=== PATIENT | male | born 1960 | race American Indian/Alaskan Native ===

== ENCOUNTER 2017-07-16 17:51 | Inpatient (IN) | payer BC ==
--- NOTE | 2017-07-16 18:13 | ED PDOC ---
Arrival/HPI - General Chief Complaint: Weakness/Neurological Deficit Time Seen by Provider: 07/16/17 18:06 Historian: Patient, EMS - History of Present Illness Narrative History of Present Illness (Text): 07/16/17 18:09 pt p/w + speech changes/mild right sided weakness ~ 30-45min prior to ED arrival ; as per EMS, pt was noted by passenger on the bus that he was in (on the way home) that pt had trouble with speech and that he did not look well; pt states he noted speech changes 2 days ago and that his symptoms were intermittent; pt felt like he had a hard time getting his words out and felt that the new medications he is on is causing it (pt states its Viagra); pt states + mild headache, no new vision changes, no fever/chills/sweats, no cp/sob/palpitations , no abd pain, no n/v, no numbness/tingling, no fall/trauma/sick contact, no travel; pt denied rashes pt denied bleeding pt is here for further eval pt's without other complaints pt did not take his daily ASA today PCP: Dr Ibarra ([facility]) pt is right hand dominate 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 pt with hx of aneursym Time/Duration: Prior to Arrival Symptom Onset: Sudden Symptom Course: Improving Activities at Onset: Rest Context: Other (while sitting on the bus, going home) Past Medical History - Provider Review Nursing Documentation Reviewed: Yes - Travel History Have you recently traveled outside [place] w/in the past 3 mons?: No - Past History Past History: No Previous - Infectious Disease Hx of Infectious Diseases: None - Tetanus Immunization Tetanus Immunization: Unknown - Cardiac Hx Hypertension: Yes Hx Pacemaker: No - Pulmonary Hx Respiratory Disorders: No - Neurological HX Cerebrovascular Accident: Yes (R sided weakness) Hx Paralysis: No - Hematological/Oncological Hx Blood Transfusions: No Hx Blood Transfusion Reaction: No - Musculoskeletal/Rheumatological Hx Musculoskeletal Disorders: No - Psychiatric Hx Psychophysiologic Disorder: No Hx Anxiety: No Hx Bipolar Disorder: No Hx Depression: No Hx Emotional Abuse: No Hx Hallucinations: No Hx Panic Disorder: No Hx Post Traumatic Stress Disorder: No Hx Psychosis: No Hx Physical Abuse: No Hx Schizophrenia: No Hx Sexual Abuse: No Hx Substance Use: No - Surgical History Hx Cardiac Catheterization: Yes (2012) - Anesthesia Hx Anesthesia: Yes Hx Anesthesia Reactions: No Hx Malignant Hyperthermia: No - Suicidal Assessment Feels Threatened In Home Enviroment: No Family/Social History - Physician Review Nursing Documentation Reviewed: Yes Family/Social History: No Known Family HX Smoking Status: Never Smoked Hx Alcohol Use: No Hx Substance Use: No Hx Substance Use Treatment: No Allergies/Home Meds Allergies/Adverse Reactions: Allergies No Known Allergies Allergy (Verified 11/05/12 10:04) Home Medications: Home Meds Medication Instructions Recorded Confirmed Atorvastatin [Lipitor] 1 tab PO DAILY 07/16/17 07/16/17 Ergocalciferol [Drisdol 50,000 1 cap PO Q7D 07/16/17 07/16/17 Intl Units Cap] Nebivolol [Bystolic] 1 tab PO DAILY 07/16/17 07/16/17 Sildenafil Citrate [Viagra] 1 tab PO PRN PRN 07/16/17 07/16/17 Valsartan/Hydrochlorothiazide 1 tab PO DAILY 07/16/17 07/16/17 [Valsartan-Hctz 80-12.5 mg Tab] amLODIPine [Norvasc] 1 tab PO DAILY 07/16/17 07/16/17 Review of Systems - Review of Systems Constitutional: Normal Eyes: Normal ENT: Normal Respiratory: Normal Cardiovascular: Normal Gastrointestinal: Normal Genitourinary Male: Normal Musculoskeletal: Normal Neurological: Headache, Focal Weakness (right arm/leg), Speech Changes ( inability to get words out) Endocrine: Normal Hemo/Lymphatic: Normal Psychiatric: Normal Physical Exam Vital Signs Reviewed: Yes Vital Signs Temp Pulse Resp BP Pulse Ox 07/16/17 19:48 70 18 182/101 H 98 07/16/17 19:30 70 18 196/91 H 97 07/16/17 18:41 98.3 F 72 20 184/97 H 98 07/16/17 18:03 81 18 187/90 H 100 Temperature: Afebrile Blood Pressure: Hypertensive Pulse: Regular Respiratory Rate: Normal Appearance: Positive for: Well-Appearing, Non-Toxic, Other (alert/awake, mildly uncomfortable, sitting on bed, GCS = 15, oriented x 2 (not to date/time), cooperative, NAD) Pain Distress: None Mental Status: Positive for: other (alert/awake, GCS = 15, oriented x 2 (not to date/time)) Finger Stick Blood Glucose: 91 - Systems Exam Head: Present: Atraumatic, Normocephalic Pupils: Present: PERRL, Other (no nystagmus, no photophobia, sclera anicteric, visual field intact b/l) Extroacular Muscles: Present: EOMI Conjunctiva: Present: Normal Ears: Present: Normal Mouth: Present: Moist Mucous Membranes, Normal Teeth, Other (uvula/tongue are midline, no exudate/lesions, no drooling/stridor, intact dentitions) Pharnyx: Present: Normal Nose (External): Present: Atraumatic Nose (Internal): Present: Normal Inspection Neck: Present: Normal Range of Motion, Trachea Midline, Other (intact ROM, no step off, no nuchal rigidity). No: Meningeal Signs, MIDLINE TENDERNESS, Paraspinal Tenderness Respiratory/Chest: Present: Clear to Auscultation, Good Air Exchange, Other ( CTA b/l, no w/r/r, no accessory muscle use noted, no tachypenia). No: Respiratory Distress, Accessory Muscle Use, Wheezes Cardiovascular: Present: Regular Rate and Rhythm, Normal S1, S2. No: Murmurs Abdomen: Present: Normal Bowel Sounds, Other (well nourished male, no focal tenderness, no resendez's sign, no mcburney's point tenderness, no masses/rebound/ guarding/rigidity) Back: Present: Normal Inspection. No: CVA Tenderness, Midline Tenderness, Paraspinal Tenderness, Pain with Leg Raise Upper Extremity: Present: Normal Inspection, Normal ROM, NORMAL PULSES, Neurovascularly Intact, Other (strength 4+/5 right arm, WNL left arm; otherwise WNL, no gross deformities, reflex +2/2). No: Deformity Lower Extremity: Present: Normal Inspection, NORMAL PULSES, Normal ROM, Neurovascularly Intact, Other (strength 4+/5 right leg, WNL left leg; otherwise WNL, no gross deformities, reflex +2/2). No: Deformity Neurological: Present: GCS=15, CN II-XII Intact Skin: Present: Warm, Normal Color, Other (cap refill < 1sec, no ulcerations, no petechiae, no rashes) Psychiatric: Present: Alert, Normal Insight, Normal Concentration Medical Decision Making ED Course and Treatment: 07/16/17 18:07 Impression: speech changes/right sided weakness i have consider all the differential diagnosis regarding pt's chief medical complaints/clinical findings, including but are not limited to: ? TIA vs CVA A/P: speech changes/right sided weakness - code stroke - labs - iv - xray - ct - supportive care - observe/reevaluation CODE STROKE was activated 6:07p - spoke to Dr Eller, water reclamation systems operator neurologists, made aware, given pt's indeterminant time of TIA/CVA symptoms (possibly starting on thursday), and with slightly improved symptoms, PT IS NOT A CANDIDATE for TPA, Dr Eller will continue to monitor 07/16/[address] Eller, after negative CT, made aware, would like full dose ASA provided to the patient, permissive hypertension, unless BP > 220/110, and to admit pt for further eval paging water reclamation systems operator PCP, Dr Robledo pt is currently comfortable pt is not in any distress Dr Robledo has not reply/return call, continue to page 07/16/17 21:04 Dr Robledo contacted, made aware, agrees with admission; agrees with neurology ( Rafita) consultation in the morning pt is made aware of his medical results agrees with admission pt's currently at baseline, NO slurr speech, continued right sided (arm/leg) weakness (chronic) Re-evaluation Time: 19:00 Reassessment Condition: Improving,but remains with symptoms - Critical Care Critical Care Minutes: 45 minutes Critical Care Time: Excluding Proc Time Narrative Critical Care (Text): 07/16/17 19:07 critical care time: 45min, excluding procedure time, excluding time teaching residents/students/mid-level providers; including initial eval/diagnosis, diagnostic interpretation, re-eval, consultations, final disposition - Lab Interpretations Lab Results: 07/16/17 18:14 07/16/17 18:14 Lab Results 07/16/17 19:17: Urine Color Straw, Urine Appearance Clear, Urine pH 7.5, Ur Specific Cucumber 1.010, Urine Protein Negative, Urine Glucose (UA) Negative, Urine Ketones Negative, Urine Blood Negative, Urine Nitrate Negative, Urine Bilirubin Negative, Urine Urobilinogen 0.2, Ur Leukocyte Esterase Negative 07/16/17 18:14: Sodium 146, Potassium 4.1, Chloride 106, Carbon Dioxide 28, Anion Gap 16, BUN 17, Creatinine 1.1, Est GFR ( Amer) > 60, Est GFR (Non- Af Amer) > 60, Random Glucose 96, Calcium 9.3, Total Bilirubin 0.4, AST 24, ALT 31, Alkaline Phosphatase 52, Troponin I < 0.01, Total Protein 8.1, Albumin 4.5, Globulin 3.6, Albumin/Globulin Ratio 1.2, Triglycerides 255 H, Cholesterol 209 H , LDL Cholesterol Direct 113, HDL Cholesterol 33 07/16/17 18:14: PT 11.7, INR 1.03, APTT 30.9 07/16/17 18:14: WBC 4.7, RBC 4.45, Hgb 12.5 L, Hct 39.2 L, MCV 88.1, MCH 28.1, MCHC 31.9, RDW 15.3 H, Plt Count 209, MPV 10.0, Gran % 36.6 L, Lymph % (Auto) 53.7 H, [place] % (Auto) 7.6 H, Eos % (Auto) 1.9, Baso % (Auto) 0.2, Gran # 1.73, Lymph # (Auto) 2.5, [place] # (Auto) 0.4, Eos # (Auto) 0.1, Baso # (Auto) 0.01 07/16/17 18:06: Blood Type Pending, Antibody Screen Pending, BBK History Checked Patient has bt 07/16/17 17:59: POC Glucose (mg/dL) 91 I have reviewed the lab results: Yes Interpretation: All labs normal - RAD Interpretation Narrative RAD Interpretations (Text): Report Date : 07/16/2017 18:30:50 PROCEDURE: CT HEAD WITHOUT CONTRAST. 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 This is unchanged. No acute findings 07/16/17 21:05 Chest X-ray read and interpreted by me, which shows no acute disease, right shunt catheter noted. PROCEDURE: CT Angiography of the Brain. HISTORY: speech changes, slightly worse R sided weaknes; COMPARISON: None available. TECHNIQUE: CT angiography of the intracranial arteries was performed. Coronal and sagittal maximum intensity projection reformated images were generated. This CT exam was performed using one or more of the following dose reduction techniques: Automated exposure control, adjustment of the mA and/or kV according to patient size, and/or use of iterative reconstruction technique. FINDINGS: INTERNAL CEREBRAL ARTERIES: Unremarkable. The skull base, petrous, cavernous and supraclinoid segments are bilaterally widely patent. ANTERIOR CEREBRAL ARTERIES: Unremarkable. A1 and A2 segments are widely patent. Smaller distal branches unremarkable, as visualized. MIDDLE CEREBRAL ARTERIES: Unremarkable. M1 and M2 segments are widely patent. Perisylvian branches grossly symmetric. POSTERIOR CIRCULATION: Basilar Artery: Unremarkable. Distal Vertebral Arteries: Unremarkable. Posterior Cerebral Arteries: Unremarkable. Posterior Inferior Cerebellar Arteries: Unremarkable. ANEURYSM/ VASCULAR MALFORMATIONS: None. OTHER FINDINGS: There is a right-sided ventricular shunt. Chronic encephalomalacia and atrophy can be seen in the region of the left thalamus and basal ganglia IMPRESSION: Unremarkable CT Angiography of the Brain. CT Angiography of the neck with contrast HISTORY: speech changes, slightly worse R sided weaknes; COMPARISON: None available. TECHNIQUE: Contiguous axial images of the neck were obtained from the level of the skull- base to the superior mediastinum in the arteriographic phase of enhancement. Coronal and sagittal reformats or also generated. IV contrast dose: 95 cc of Omni 350 Radiation Dose - DLP: 663 mGy-cm This CT exam was performed using one or more of the following dose reduction techniques: Automated exposure control, adjustment of the mA and/or kV according to patient size, and/or use of iterative reconstruction technique. FINDINGS: RIGHT CAROTID ARTERIES: Common Carotid Artery: Normal. Carotid Bifurcation: Normal. Internal Carotid Artery:Normal. External Carotid Artery (proximal branches): Normal. LEFT CAROTID ARTERIES: Common Carotid Artery: Normal. Carotid Bifurcation: Normal. Internal Carotid Artery:The left internal carotid is small in caliber throughout its length. This is probably a normal variation. There is no focal stenosis . External Carotid Artery (proximal branches): Normal. VERTEBRAL ARTERIES: Right Vertebral Artery: Normal. Left Vertebral Artery: Normal. OTHER FINDINGS: None. IMPRESSION: The left internal carotid is small in caliber throughout its length. This is probably a normal variation. There is no focal stenosis Radiology Orders: 07/16/17 18:07 CTA HEAD/NECK CODE STROKE [CT] Stat HEAD W/O (CODE STROKE) [CT] Stat 07/16/17 18:48 CHEST PORTABLE [RAD] Stat Silver Recovery Operator: Radiologist - EKG Interpretation EKG Interpretation (Text): 07/16/17 18:35 NSR at 75 bpm, normal axis, no ectopy, inverted T in leads II, L, III, F, V4-6, no st changes, voltage criteria LVH; ABNL EKG; unchanged compare with old ekg 2014 Interpreted by ED Physician: Yes Type: 12 lead EKG Comparison: Similar to previous EKG - Medication Orders Current Medication Orders: Sodium Chloride (Sodium Chloride 0.9%) 1,000 mls @ 100 mls/hr IV .Q10H [facility] Last Admin: 07/16/17 19:23 Dose: 100 mls/hr Discontinued Medications Aspirin (Aspirin) 325 mg PO STAT STA Stop: 07/16/17 18:58 Last Admin: 07/16/17 19:23 Dose: 325 mg NIHSS Stroke Scale 3 - Date/Time Evaluation Performed Date Performed: 07/16/17 Time Performed: 18:10 When Was NIHSS Performed: Code Stroke - How Severe is the Stroke Level of Consciousness: 0=Alert LOC to Questions: 0=Both comments correct LOC to commands: 0=Obeys both correctly Best Gaze: 0=Normal Visual: 0=No visual loss Facial: 0=Normal Motor Arm - Left: 0=No drift Motor Arm - Right: 1=Drift noted before 10 sec Motor Leg - Left: 0=No drift Motor Leg - Right: 2=Falls before 5 sec Limb Ataxia: 0=Absent Sensory: 0=Normal Best Language: 1=Mild to moderate aphasia Dysarthia: 0=Normal articulation Extinction & Inattention (Neglect): 0=Normal, no object Score: 4 Disposition/Present on Arrival - Present on Arrival Any Indicators Present on Arrival: No History of DVT/PE: No History of Uncontrolled Diabetes: No Urinary Catheter: No History of Decub. Ulcer: No History Surgical Site Infection Following: None - Disposition Have Diagnosis and Disposition been Completed?: Yes Diagnosis: Speech complaints, TIA (transient ischemic attack), Elevated blood pressure reading, Brain mass Disposition: HOSPITALIZED Disposition Time: 21:07 Patient Plan: Admission, Telemetry Patient Problems: Current Active Problems Problem Status Onset Elevated blood pressure reading Acute Speech complaints Acute TIA (transient ischemic attack) Acute Condition: STABLE Discharge Instructions (ExitCare): Hypotension (ED), Hypertension (ED) Print Language: BELARUSIAN Referrals: Jl Cerrato MD [Staff Provider] - Follow up with primary Forms: [facility])
[2017-07-16] MEDS ORDERED: Iohexol 350 MG/100 ML VIAL ONE (18:16)
[2017-07-16 18:18] LABS: BASO # 0.01 K/mm3 (0.0-2.0); BASO % 0.2 % (0.0-3.0); EOS # 0.1 (0.0-0.7); EOS % 1.9 % (1.5-5.0); GRAN # 1.73 (1.4-6.5); GRAN % 36.6 % (50.0-68.0); HEMOGLOBIN 12.5 g/dL (14.0-18.0); LYMPH # 2.5 (1.2-3.4); LYMPH % 53.7 % (22.0-35.0); MEAN CELL VOLUME 88.1 fl (80.0-105.0); MEAN CORPUSCULAR HEMOGLOBIN 28.1 pg (25.0-35.0); MEAN CORPUSCULAR HGB CONC 31.9 g/dl (31.0-37.0); MONO # 0.4 (0.1-0.6); MONO % 7.6 % (1.0-6.0); RBC 4.45 10^6/uL (3.5-6.1); RED CELL DISTRIBUTION WIDTH 15.3 % (11.5-14.5); WHITE BLOOD COUNT 4.7 10^3/ul (4.5-11.0)
[2017-07-16 18:29] LABS: INR 1.03 (0.93-1.08); PARTIAL THROMBOPLASTIN TIME 30.9 Seconds (25.1-36.5); PROTHROMBIN TIME 11.7 SECONDS (9.4-12.5)
[2017-07-16 18:31] LABS: ALB/GLOB RATIO 1.2 (1.1-1.8); ALBUMIN 4.5 g/dL (3.0-4.8); ALT/SGPT 31 U/L (7-56); AST/SGOT 24 U/L (17-59); BLOOD UREA NITROGEN 17 mg/dL (7-21); CALCIUM 9.3 mg/dL (8.4-10.5); GFR AFRICAN-AMERICAN > 60; GFR NON-AFRICAN AMERICAN > 60; HDL CHOLESTEROL 33 mg/dL (29-60)
--- NOTE | 2017-07-16 18:32 | CT ---
PROCEDURE: CT HEAD WITHOUT CONTRAST. HISTORY: Code Stroke COMPARISON: 05/14/2014 CT TECHNIQUE: Axial computed tomography images were obtained through the head/brain without intravenous contrast. Radiation dose: Total exam DLP = 986 mGy-cm. This CT exam was performed using one or more of the following dose reduction techniques: Automated exposure control, adjustment of the mA and/or kV according to patient size, and/or use of iterative reconstruction technique. FINDINGS: HEMORRHAGE: No intracranial hemorrhage. BRAIN: There is a 2.8 cm mass in the left thalamus. This is unchanged. There is a right ventricular catheter. Chronic microvascular changes VENTRICLES: Unremarkable. No hydrocephalus. CALVARIUM: Unremarkable. PARANASAL SINUSES: Unremarkable as visualized. No significant inflammatory changes. MASTOID AIR CELLS: Unremarkable as visualized. No inflammatory changes. OTHER FINDINGS: None. 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 This is unchanged. No acute findings
[2017-07-16 18:41] LABS: LDL CHOLESTEROL 113 mg/dL (0-129); TROPONIN I < 0.01 ng/mL
--- NOTE | 2017-07-16 19:05 | CT ---
PROCEDURE: CT Angiography of the Brain. HISTORY: speech changes, slightly worse R sided weaknes; COMPARISON: None available. TECHNIQUE: CT angiography of the intracranial arteries was performed. Coronal and sagittal maximum intensity projection reformated images were generated. This CT exam was performed using one or more of the following dose reduction techniques: Automated exposure control, adjustment of the mA and/or kV according to patient size, and/or use of iterative reconstruction technique. FINDINGS: INTERNAL CEREBRAL ARTERIES: Unremarkable. The skull base, petrous, cavernous and supraclinoid segments are bilaterally widely patent. ANTERIOR CEREBRAL ARTERIES: Unremarkable. A1 and A2 segments are widely patent. Smaller distal branches unremarkable, as visualized. MIDDLE CEREBRAL ARTERIES: Unremarkable. M1 and M2 segments are widely patent. Perisylvian branches grossly symmetric. POSTERIOR CIRCULATION: Basilar Artery: Unremarkable. Distal Vertebral Arteries: Unremarkable. Posterior Cerebral Arteries: Unremarkable. Posterior Inferior Cerebellar Arteries: Unremarkable. ANEURYSM/ VASCULAR MALFORMATIONS: None. OTHER FINDINGS: There is a right-sided ventricular shunt. Chronic encephalomalacia and atrophy can be seen in the region of the left thalamus and basal ganglia IMPRESSION: Unremarkable CT Angiography of the Brain. CT Angiography of the neck with contrast HISTORY: speech changes, slightly worse R sided weaknes; COMPARISON: None available. TECHNIQUE: Contiguous axial images of the neck were obtained from the level of the skull-base to the superior mediastinum in the arteriographic phase of enhancement. Coronal and sagittal reformats or also generated. IV contrast dose: 95 cc of Omni 350 Radiation Dose - DLP: 663 mGy-cm This CT exam was performed using one or more of the following dose reduction techniques: Automated exposure control, adjustment of the mA and/or kV according to patient size, and/or use of iterative reconstruction technique. FINDINGS: RIGHT CAROTID ARTERIES: Common Carotid Artery: Normal. Carotid Bifurcation: Normal. Internal Carotid Artery:Normal. External Carotid Artery (proximal branches): Normal. LEFT CAROTID ARTERIES: Common Carotid Artery: Normal. Carotid Bifurcation: Normal. Internal Carotid Artery:The left internal carotid is small in caliber throughout its length. This is probably a normal variation. There is no focal stenosis . External Carotid Artery (proximal branches): Normal. VERTEBRAL ARTERIES: Right Vertebral Artery: Normal. Left Vertebral Artery: Normal. OTHER FINDINGS: None. IMPRESSION: The left internal carotid is small in caliber throughout its length. This is probably a normal variation. There is no focal stenosis
[2017-07-16] MEDS: Sodium Chloride 0.9% 1,000 ML IV SCH (19:23)
[2017-07-16 19:29] LABS: PH,URINE 7.5 (4.7-8.0); URINE APPEARANCE CLEAR (CLEAR); URINE BILIRUBIN NEGATIVE (NEGATIVE); URINE BLOOD NEGATIVE (NEGATIVE); URINE COLOR STRAW (YELLOW); URINE GLUCOSE (UA) NEGATIVE (NEGATIVE); URINE LEUKOCYTE ESTERASE NEGATIVE Leu/uL (NEGATIVE); URINE PROTEIN NEGATIVE mg/dL (<30 mg/dL); URINE UROBILINOGEN 0.2 E.U./dL (<1 E.U./dL)
[2017-07-16] MEDS ORDERED: Ergocalciferol 50,000 Intl Units Cap PO SCH (23:30)
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
--- NOTE | 2017-07-17 08:51 | RAD ---
HISTORY: Code Stroke COMPARISON: 05/13/2014 FINDINGS: LUNGS: No active pulmonary disease. PLEURA: No significant pleural effusion identified, no pneumothorax apparent. CARDIOVASCULAR: Mild cardiomegaly. Mild vascular congestion OSSEOUS STRUCTURES: No significant abnormalities. VISUALIZED UPPER ABDOMEN: Normal. OTHER FINDINGS: There is a [employer] shunt catheter IMPRESSION: Mild vascular congestion
--- NOTE | 2017-07-17 10:11 | CARD ---
APPROVED REPORT EKG Measurement Heart [id number] <Conclusion> Normal sinus rhythm Voltage criteria for left ventricular hypertrophy ST & T wave abnormality, consider inferolateral ischemia Prolonged QT No change
[2017-07-17] MEDS: NEBIVOLOL PO SCH (10:22)
[2017-07-17] MEDS: Sodium Chloride 0.9% 1,000 ML IV SCH ×3 (14:15→22:38)
--- NOTE | 2017-07-17 18:02 | MRI ---
PROCEDURE: MRI of the brain dated 07/17/2017 HISTORY: TIA versus CVA COMPARISON: Comparison made with prior CT scan brain and CTA of the neck and brain both dated 07/16/2017 TECHNIQUE: Multiplanar, multisequence MR images of the brain were obtained without intravenous contrast enhancement. . FINDINGS: HEMORRHAGE: The current study demonstrates relatively large irregular somewhat elliptical shaped lesion which appears to be centered in the left basal ganglia and extends inferiorly into the left temporal lobe and superiorly into left posterior bernard radiata. This lesion exhibits irregular - serpiginous areas of mixed signal with the darker foci felt to represent hemosiderin deposits. Findings most likely represent a large AVM which has undergone embolization and is thrombosed . Clinical correlation with surgical history is recommended. Formal -traditional four-vessel angiogram could be performed to confirm complete thrombosis. Additionally, there are hemosiderin deposits seen in the right thalamus and right anterior periatrial white matter of bordering the anterior margin of a traversing [employer] shunt tube . . . This lesion is surrounded by a rim of prolonged T2 signal likely representing gliosis. . Moderate diffuse/confluent prolonged T2 signal changes seen within periventricular and deep white matter both cerebral hemispheres extending peripherally into the deep and subcortical regions bilaterally. Multiple more discrete deep and subcortical white matter infarct changes are also felt to be present. There is a area of gliosis on and wallerian degeneration left cerebral peduncle. . There may also be a tiny chronic lacunar left cerebellum. No evidence of acute infarcts seen on diffusion imaging. . There are small bilateral subdural collections possibly representing chronic subdural hematomas. There is ex vacuo dilatation of the left lateral ventricle particularly the left atrium and occipital horn of. Ventricles are multi the breast by an in situ [employer] shunt tube which enters the right posterior temporoparietal region the and traverses the right atrium. Visualized major vascular flow voids at skull base patent. Orbits and contents unremarkable. IMPRESSION: Findings most consistent with a large left-sided residual AVM which presumably has undergone embolization and is thrombosed however traditional four-vessel cerebral angiogram recommended to confirm complete thrombosis. The epicenter of this lesion appears to be located in the left basal ganglia with extension inferiorly into the left temporal lobe and superiorly into the left mid and posterior bernard radiata. There appears to be extensive residual hemosiderin deposits scattered throughout the large aforementioned AVM. Large area of gliosis surrounds lesion. There is associated ex vacuo dilatation of the left lateral ventricle particularly the left atrium and occipital horn. . There is gliosis and wallerian degeneration of the left cerebral peduncle Small bilateral chronic appearing subdural hematomas. Extensive chronic white matter ischemic changes as above. No evidence of acute infarct. . In situ [employer] shunt tube . Ventricles remain well decompressed.
[2017-07-18] MEDS: Sodium Chloride 0.9% 1,000 ML IV SCH ×5 (01:48→19:49)
[2017-07-18 07:08] LABS: HDL CHOLESTEROL 29 mg/dL (29-60); IRON 52 ug/dL (45-180)
[2017-07-18 07:18] LABS: % IRON SATURATION 21 % (20-55); TOTAL IRON BINDING CAPACITY 251 ug/dL (261-462)
[2017-07-18 07:19] LABS: LDL CHOLESTEROL 126 mg/dL (0-129)
[2017-07-18] MEDS: NEBIVOLOL PO SCH (09:17)
[2017-07-18 12:50] LABS: FOLATE 13.9 ng/mL
[2017-07-19] MEDS: Sodium Chloride 0.9% 1,000 ML IV SCH ×4 (03:23→22:05)
--- NOTE | 2017-07-19 06:58 | CP.PCM.PN ---
Subjective - Date & Time of Evaluation Date of Evaluation: 07/19/17 Time of Evaluation: 06:56 - Subjective Subjective: Mr. Lara was seen and examined at the bedside. He is alert, oriented and denies any headache, dizziness, lightheadedness. He states that his slurred speech is minimally improving, but had slight slurred speech after his two episodes of ruptures of aneurysms. He further claims of his right side peripheral neglect, mild right facial droop are chronic. He is able to follow simple commands with right side remains weak. He also verbalize that he only use a cane during winter time and limps to ambulate. He is able to do some of his awn ADLs. MRI of the brain showed consistent with a large left-sided residual AVM which presumably has undergone embolization and is thrombosed however traditional four-vessel cerebral angiogram is recommended to confirm complete thrombosis. The epicenter of this lesion appears to be located in the left basal ganglia with extension inferiorly into the left temporal lobe and superiorly into the left mid and posterior bernard radiata. There appears to have extensive residual hemosiderin deposits scattered throughout the large aforementioned AVM.Large area of gliosis surrounds the lesion. There is associated ex vacuo dilation of the left lateral ventricle particularly the left atrium and occipital horn. There is gliosis and wallerian degeneration of the left cerebral peduncle. Small bilateral chronic appearing subdural hematomas. Extensive white matter ischemic changes. There is no evidence of acute infarct. In situ HYDRA[employer]IC TE[employer] shunt tube. Ventricles remain well decompressed. There was no untoward events overnight. Objective - Vital Signs/Intake and Output Vital Signs (last 24 hours): Temp Pulse Resp BP Pulse Ox 97.6 F 64 20 161/93 H 98 07/19/17 06:00 07/19/17 06:00 07/19/17 06:00 07/19/17 06:00 07/19/17 06:00 Intake and Output: 07/18/17 07/19/17 18:59 06:59 Intake Total 1200 Balance 1200 - Medications Medications: Current Medications Amlodipine Besylate (Norvasc) 10 mg PO DAILY [facility] Last Admin: 07/18/17 09:17 Dose: 10 mg Aspirin (Ecotrin) 81 mg PO DAILY [facility] Last Admin: 07/18/17 09:16 Dose: 81 mg Atorvastatin Calcium (Lipitor) 40 mg PO DIN [facility] Last Admin: 07/18/17 17:13 Dose: 40 mg Ergocalciferol (Drisdol 50,000 Intl Units Cap) 1 cap PO Q7D [facility] Last Admin: 07/17/17 00:00 Dose: 1 cap Famotidine (Pepcid) 40 mg PO HS [facility] Last Admin: 07/18/17 21:06 Dose: 40 mg Fenofibrate (Tricor) 145 mg PO DAILY [facility] Last Admin: 07/18/17 09:16 Dose: 145 mg Hydrochlorothiazide (Microzide) 12.5 mg PO DAILY [facility] Last Admin: 07/18/17 09:17 Dose: 12.5 mg Sodium Chloride (Sodium Chloride 0.9%) 1,000 mls @ 100 mls/hr IV .Q10H [facility] Last Admin: 07/19/17 05:34 Dose: Not Given Losartan Potassium (Cozaar) 50 mg PO DAILY [facility] Last Admin: 07/18/17 09:15 Dose: 50 mg Non-Formulary Medication (Nebivolol [Bystolic]) 1 tab PO DAILY [facility] Last Admin: 07/18/17 09:17 Dose: Not Given - Labs Labs: PT 11.7 SECONDS (9.4-12.5) 07/16/17 18:14 INR 1.03 (0.93-1.08) 07/16/17 18:14 APTT 30.9 Seconds (25.1-36.5) 07/16/17 18:14 - Constitutional Appears: No Acute Distress - Head Exam Head Exam: NORMAL INSPECTION - Eye Exam Pupil Exam: PERRL - Neurological Exam Neurological Exam: Alert, Awake, Oriented x3 Neuro motor strength exam: Left Upper Extremity: 4, Right Upper Extremity: 2/1, Left Lower Extremity: 4, Right Lower Extremity: 3 Additional comments: Alert, oriented, slurred speech is minimally improving, but had slight slurred speech after his two episodes of ruptures of aneurysms. He further claims of his right side peripheral neglect, mild right facial droop are chronic. He is able to follow simple commands with right side remains weak. He also verbalize that he only use a cane during winter time and limps to ambulate. He is able to do some of his awn ADLs. Sensation is intact. Assessment and Plan (1) Dysarthria Assessment & Plan: Case discussed with Dr. Eller, continue all current medical, physical, occupational, and speech therapies. Pending echocardiogram and pending EEG results. Recommend to follow up with his own neurosurgeon to further evaluate his AVM and possible cerebral angiogram. Status: Acute
[2017-07-19 07:22] LABS: HEMOGLOBIN 13.5 g/dL (14.0-18.0); MEAN CELL VOLUME 86.7 fl (80.0-105.0); MEAN CORPUSCULAR HEMOGLOBIN 27.6 pg (25.0-35.0); MEAN CORPUSCULAR HGB CONC 31.8 g/dl (31.0-37.0); MEAN PLATELET VOLUME 10.1 fl (7.0-11.0); RBC 4.89 10^6/uL (3.5-6.1); RED CELL DISTRIBUTION WIDTH 15.1 % (11.5-14.5); WHITE BLOOD COUNT 4.8 10^3/ul (4.5-11.0)
[2017-07-19 07:32] LABS: BLOOD UREA NITROGEN 15 mg/dL (7-21); CALCIUM 9.6 mg/dL (8.4-10.5); GFR AFRICAN-AMERICAN > 60; GFR NON-AFRICAN AMERICAN > 60
[2017-07-19] MEDS: NEBIVOLOL PO SCH (10:33)
--- NOTE | 2017-07-19 22:06 | PN ---
DATE: 07/19/2017 SUBJECTIVE: The patient is a 57-year-old male. The patient is seen and examined at the bedside, looking comfortable. No change in the status. Still a little bit dysarthric. Right side is a little bit weak. Brother was sitting on the bedside. Length of time discussion done. All questions were answered. PHYSICAL EXAMINATION: VITAL SIGNS: Temperature 98, pulse 74, blood pressure 140/97, respiratory rate 17. HEENT: Head: Normocephalic, atraumatic. Eyes: PERRLA. Extraocular muscles intact. Conjunctivae clear. Nose patent. Mucous membrane moist. NECK: Supple. No carotid bruit. No JVD or thyromegaly. CHEST: Bilaterally symmetrical. HEART: S1 and S2 positive. LUNGS: Clear to auscultation. ABDOMEN: Soft. Bowel sounds present. No organomegaly. EXTREMITIES: No edema. No cyanosis. NEUROLOGICAL: The patient is awake and alert. Following simple commands. LABORATORY DATA: White blood cells 4.8, hemoglobin 13.5, hematocrit 42.4, platelets 220. Sodium 145, potassium 4.1, BUN 15, creatinine 1, glucose 83. MEDICATIONS: Cozaar, vitamin D, Ecotrin, Lipitor, hydrochlorothiazide, Norvasc, famotidine, NS, TriCor. ASSESSMENT AND PLAN: Mr. Arcenio Lara, 57-year-old male with anemia. Seen by Dr. Alfred Eller, neurologist. Plan for MRI of the head reviewed by me. There are small bilateral chronic-appearing subdural hematomas, extensive chronic white matter ischemic changes. No evidence of acute infarction , ventricles remained well decompensated. This finding is most consistent with large left-sided arteriovenous malformation, which presumably had undergone embolization and is thrombosed , angiogram recommended to confirm the complete thrombus. Extensive residual hemosiderin deposit and scattered throughout the large aforementioned arteriovenous malformation. Large area of gliosis surrounding the lesion. The patient has history of arteriovenous malformation in the past. The patient is a very poor historian, noncompliant, is supposed to take aspirin, but was not taking. History of right-sided weakness is still there, required physical therapy. Gastrointestinal and deep venous thrombosis prophylaxis. Later on, his called me. I had length of time discussion with her and gave all answers of the questions. We will follow up. Norma Robledo MD [facility] # [id number] JUDITH
[2017-07-20] MEDS: Sodium Chloride 0.9% 1,000 ML IV SCH ×3 (02:21→22:24)
--- NOTE | 2017-07-20 05:44 | PN ---
DATE: 07/18/2017 SUBJECTIVE: The patient is a 57-year-old male. The patient was seen and examined on the bedside, looking comfortable. No nausea, vomiting or diarrhea. No hematuria or hematochezia. No headache, no dizziness. No chest pain. No palpitation. PHYSICAL EXAMINATION VITAL SIGNS: Temperature 98, pulse 52, blood pressure 160/90, respiratory rate 18. HEENT: Head normocephalic, atraumatic. Eyes PERRLA. Extraocular muscles intact. Conjunctivae clear. Nose patent. Mucous membrane moist. NECK: Supple. No carotid bruit. No JVD or thyromegaly. CHEST: Bilaterally symmetrical. HEART: S1 and S2 positive. LUNGS: Clear to auscultation. ABDOMEN: Soft. Bowel sounds present. No organomegaly. EXTREMITIES: No edema. No cyanosis. NEUROLOGICAL: The patient is awake and alert. Follow simple orders. MEDICATIONS: Cozaar, Ecotrin, Lipitor, Bystolic, Norvasc, Pepcid, NS, TriCor. LABORATORY DATA: White blood cell is 4.7, hemoglobin 12.5, hematocrit 39.2, platelets 209. Sugar 84, iron 52. ASSESSMENT: Mr. Arcenio Lara is a 57-year-old male with anemia, iron deficiency, hypercholesterolemia, B12 deficiency. We will replace B12 and iron, history of 2-3 times cerebrovascular accident/transient ischemic attack with residual arm and leg deficit, 2-3 aneurysm ruptured as per the patient at age 23 and aneurysm repair 20 years ago, has different hospitalizations. Family history is also of brain aneurysm. Mother at the age of 33 due to brain aneurysm rupture. Discussion done with Dr. Eller. PLAN: To give physical therapy. The patient actually came in [facility] after episode of speech change and weakness, getting aspirin. CAT scan and MRI of the head reviewed by me, need EEG, speech pathologist evaluation. Continue present treatment. GI and DVT prophylaxis. Repeat labs. We will follow up. Norma Robledo MD [facility]
--- NOTE | 2017-07-20 07:28 | CP.PCM.PN ---
Subjective - Date & Time of Evaluation Date of Evaluation: 07/20/17 Time of Evaluation: 08:30 - Subjective Subjective: PGY2 Neuro progress note for Dr. Castro Patient seen and examined at bedside. Nursing reports no acute events overnight. Patient reports he was not able to sleep well as he was continually woken up but he reports he feels better and that his speech is baseline. He denied acute complaints of headache, dizziness, fever, chills, chest pain, palpitations, SOB, cough, abd pain, nausea, vomiting, bowel/bladder complaints, pain/swelling in his legs b/l. Objective - Vital Signs/Intake and Output Vital Signs (last 24 hours): Temp Pulse Resp BP Pulse Ox 97.4 F L 65 20 158/90 H 98 07/20/17 06:00 07/20/17 06:00 07/20/17 06:00 07/20/17 06:00 07/20/17 06:00 Intake and Output: 07/20/17 07/20/17 06:59 18:59 Intake Total 1540 Output Total 1400 Balance 140 - Medications Medications: Current Medications Amlodipine Besylate (Norvasc) 10 mg PO DAILY [facility] Last Admin: 07/19/17 10:32 Dose: 10 mg Aspirin (Ecotrin) 81 mg PO DAILY [facility] Last Admin: 07/19/17 10:32 Dose: 81 mg Atorvastatin Calcium (Lipitor) 40 mg PO DIN [facility] Last Admin: 07/19/17 16:43 Dose: 40 mg Ergocalciferol (Drisdol 50,000 Intl Units Cap) 1 cap PO Q7D [facility] Last Admin: 07/17/17 00:00 Dose: 1 cap Famotidine (Pepcid) 40 mg PO HS [facility] Last Admin: 07/19/17 22:01 Dose: 40 mg Fenofibrate (Tricor) 145 mg PO DAILY [facility] Last Admin: 07/19/17 10:33 Dose: 145 mg Hydrochlorothiazide (Microzide) 12.5 mg PO DAILY [facility] Last Admin: 07/19/17 10:33 Dose: 12.5 mg Sodium Chloride (Sodium Chloride 0.9%) 1,000 mls @ 100 mls/hr IV .Q10H [facility] Last Admin: 07/20/17 02:21 Dose: Not Given Losartan Potassium (Cozaar) 50 mg PO DAILY [facility] Last Admin: 07/19/17 10:32 Dose: 50 mg Non-Formulary Medication (Nebivolol [Bystolic]) 1 tab PO DAILY [facility] Last Admin: 07/19/17 10:33 Dose: Not Given - Labs Labs: 07/19/17 06:00 07/19/17 06:00 PT 11.7 SECONDS (9.4-12.5) 07/16/17 18:14 INR 1.03 (0.93-1.08) 07/16/17 18:14 APTT 30.9 Seconds (25.1-36.5) 07/16/17 18:14 - Constitutional Appears: Non-toxic, No Acute Distress - Head Exam Head Exam: ATRAUMATIC, NORMAL INSPECTION, NORMOCEPHALIC - Eye Exam Eye Exam: EOMI, Normal appearance, PERRL. absent: Conjunctival injection, Scleral icterus Pupil Exam: NORMAL ACCOMODATION - ENT Exam ENT Exam: Mucous Membranes Moist - Respiratory Exam Respiratory Exam: NORMAL BREATHING PATTERN. absent: Accessory Muscle Use, Respiratory Distress - Cardiovascular Exam Cardiovascular Exam: +S1, +S2 - GI/Abdominal Exam GI & Abdominal Exam: Soft. absent: Tenderness - Rectal Exam Rectal Exam: Deferred - Extremities Exam Extremities Exam: absent: Pedal Edema, Tenderness Additional comments: RUE and RLE arm atrophied compared to LUE and LLE - Neurological Exam Neurological Exam: Alert, Awake, Oriented x3 Additional comments: RUE and RLE weaker than LUE and LLE R mouth droop Slightly decreased sensation R face brisk RUE and RLE reflexes no aphasia little dysarthria - Psychiatric Exam Psychiatric exam: Normal Affect, Normal Mood - Skin Skin Exam: Dry, Intact, Normal Color, Warm Assessment and Plan - Assessment and Plan (Free Text) Assessment: 57yo A.A. male PMHx CVA/TIA with residual R arm/leg deficits, aneurysm ruptures present to [facility] on 07/16 after having an episode of change in speech and weakness. Plan: -ASA 81 qd -Continue statin and HTN meds -Head CT: heterogeneous 2.8cm mass in the L thalamus; This is unchanged. No acute findings. -CTA head/neck: Left internal carotid is small in caliber throughout its length. This is probably a normal variation. There is no focal stenosis. -MRI: consistent with a large left-sided residual AVM which presumably has undergone embolization and is thrombosed however traditional four-vessel cerebral angiogram is recommended to confirm complete thrombosis. The epicenter of this lesion appears to be located in the left basal ganglia with extension inferiorly into the left temporal lobe and superiorly into the left mid and posterior bernard radiata. There appears to have extensive residual hemosiderin deposits scattered throughout the large aforementioned AVM.Large area of gliosis surrounds the lesion. There is associated ex vacuo dilation of the left lateral ventricle particularly the left atrium and occipital horn. There is gliosis and wallerian degeneration of the left cerebral peduncle. Small bilateral chronic appearing subdural hematomas. Extensive white matter ischemic changes. There is no evidence of acute infarct. 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 Ventricles remain well decompressed -f/u EEG -f/u Echo -PT/OT continue gait training and strengthening -Speech pathologist -Continue current management as per primary Discussed with Dr. Matthew Maxwell PGY2
--- NOTE | 2017-07-20 08:33 | HP ---
Patient was seen and examined on bedside on 07/17/2017. CHIEF COMPLAINT: Weakness, neurological deficit HISTORY OF PRESENT ILLNESS: Mr. Phu Jose is a 57-year-old male with past medical history of CVA/TIA, leg functions, brought to [facility] Room with speech changes, mild right-sided weakness 30 to 45 minutes prior to emergency room arrival. As per EMS, patient that patient had trouble with speech and that he did not look well. Patient states he noticed the speech changes 2 days ago and that his symptoms was intermittent. Patient felt like he had hard time in getting his words out and felt that the new medication he is on is causing it. Patient states that it is Viagra. Patient states mild headache. No new vision changes. No fever, no chills, no sweats. No chest pain, no palpitation, no shortness of breath, no abdominal pain. No nausea or vomiting. No hematuria, no hematochezia. Patient is noncompliant, do not take his aspirin daily. Patient is right-sided dominant. PAST MEDICAL HISTORY: Hypertension, right-sided weakness, history of cardiac catheterization. FAMILY HISTORY: Father and mother, noncontributory. ALLERGIES: PATIENT IS NOT ALLERGIC WITH ANY MEDICATIONS. HOME MEDICATIONS: Lipitor, vitamin D, , Viagra, valsartan/hydrochlorothiazide, amlodipine. HABITS: No alcohol, no substance abuse, no drugs. REVIEW OF SYSTEMS: Patient was seen and examined at the bedside in his room. He is lethargic, but trying to speak. No headache. No facial weakness movement. Speech change is improving. No fever, no chills. No hematuria or hematochezia. No swelling of the legs. PHYSICAL EXAMINATION: VITAL SIGNS: Temperature 98.3, pulse 72, respiratory rate 18, blood pressure 184/97, pulse oximetry 98. HEENT: Head normocephalic, atraumatic. Eyes, PERRLA. Extraocular muscles intact. Conjunctivae clear. Nose patent. NECK: Supple, no carotid bruit. No JVD or thyromegaly. CHEST: Bilaterally symmetrical. HEART: S1, S2 positive. LUNGS: Clear to auscultation. ABDOMEN: Soft, bowel sounds present. No organomegaly. EXTREMITIES: No edema, no cyanosis. NEUROLOGICAL: Patient is awake, partially aphasic. LABORATORY DATA: White blood cells 4.7, hemoglobin 12.5, hematocrit 39.2, platelets 209. Sodium 146, potassium 4.1, BUN 70, creatinine 1.1, glucose 96. ASSESSMENT AND PLAN: Mr. Phu Jose is a 57-year-old lady with anemia. Have elevated blood pressure, speech complaints, transient ischemic attack. Chest x-ray done, reviewed by me. Brain MRI done, reviewed by me. Seen by Dr. Alfred Eller, neurologist. Has past medical history of cerebrovascular accident/transient ischemic attack with residual right leg deficit, 2 to 3 aneurysm ruptured at 24 years and 34 years of age, aneurysm repair 20 years ago. At the age of 23, patient was hospitalized for 1 year at 3 different hospitals. Patient reports underwent cardiac arrest and had CPR for 1 hour until he was resuscitated. Patient had prior admission 5 years ago after accident snow fell on his head. Now, at this time, came with having episode of change in speech and weakness. Aspirin given. CAT scan of the head shows a heterogenous 2.8 cm mass in the thalamus. This is unchanged. No acute findings. CT head and neck left internal carotid artery caliber throughout the length. This is probably in a normal variant. There is no focal deficit noted. Follow up EEG. Neurologist is on the case. Follow up MRI, PT/OT, speech, pathology. Continue current medications and gastrointestinal and deep venous thrombosis prophylaxis. Repeat labs. We will follow up. Norma Robledo MD
[2017-07-20] MEDS: NEBIVOLOL PO SCH (09:21)
--- NOTE | 2017-07-20 15:48 | CARD ---
APPROVED REPORT EXAM: Two-dimensional and M-mode echocardiogram with Doppler and color Doppler. 2D DIMENSIONS Left Atrium (2D)3.8 (1.6-4.0cm)IVSd1.2 (0.7-1.1cm) LVDd5.6 (3.9-5.9cm)PWd1.3 (0.7-1.1cm) LVDs4.3 (2.5-4.0cm)LVEF (%)35.0 (>50%) M-Mode DIMENSIONS Aortic Root3.20 (2.2-3.7cm)Aortic Cusp Exc.2.00 (1.5-2.0cm) Aortic Valve AoV Peak Xdsokpew303.0cm/Arnol Peak GR.6mmHg Mitral Valve MV E Dcfdxnzk57.5cm/sMV A Honlghgb40.6cm/sE/A ratio0.7 TDI E/Lateral E'0.0E/Medial E'0.0 Tricuspid Valve TR Peak Bxowxetw859du/sRAP [id number] Peak Gr.17mmHg [id number] LEFT VENTRICLE The left ventricle is normal size. There is normal left ventricular wall thickness. The systolic function is severely impaired. Sever Infero-lateral hypokinesis Transmitral Doppler flow pattern is Grade I-abnormal relaxation pattern. No left ventricle thrombus noted on this study. There is no ventricular septal defect visualized. RIGHT VENTRICLE The right ventricle is normal size. There is normal right ventricular wall thickness. Systolic function is mildly reduced. ATRIA The left atrium size is normal. The right atrium size is normal. AORTIC VALVE The aortic valve is moderately thickened. No aortic regurgitation is present. There is no aortic valvular stenosis. MITRAL VALVE The mitral valve is normal in structure. There is no mitral valve regurgitation noted. TRICUSPID VALVE There is trace tricuspid regurgitation. PULMONIC VALVE There is trace pulmonic valvular regurgitation. GREAT VESSELS The aortic root is normal in size. PERICARDIAL EFFUSION There is no pericardial effusion. <Conclusion> The left ventricle is normal size. There is normal left ventricular wall thickness. The systolic function is severely impaired. Sever Infero-lateral hypokinesis Transmitral Doppler flow pattern is Grade I-abnormal relaxation pattern.
[2017-07-21 02:00] VITALS: O2SAT 100
--- NOTE | 2017-07-21 02:21 | PN ---
DATE: 07/20/2017 The patient is a 57-year-old male. SUBJECTIVE: The patient was seen and examined on the bedside. Looking comfortable. No change in the status. No hematuria. No hematochezia. No headache. No dizziness. No chest pain. No palpitation. No fever. No chills. PHYSICAL EXAMINATION: VITAL SIGNS: Temperature 97.4, pulse 65, respiratory rate 20, blood pressure 158/90, pulse oximetry 98%. HEENT: Head, normocephalic and atraumatic. Eyes, PERRLA. Extraocular muscles intact. Conjunctivae clear. Nose patent. NECK: Supple. No carotid bruit, JVD or thyromegaly. CHEST: Bilaterally symmetrical. HEART: S1, S2 positive. LUNGS: Clear to auscultation. ABDOMEN: Soft. Bowel sounds present. No organomegaly. EXTREMITIES: No edema. No cyanosis. NEUROLOGIC: The patient is awake, alert. Follows simple commands. MEDICATIONS: Amlodipine, Ecotrin, Lipitor, vitamin D, Pepcid, TriCor, NS and Cozaar. LABORATORY DATA: White blood cell is 4.8, hemoglobin 13.5, hematocrit 42.4, platelets 220. Sodium 144, potassium 4.1, BUN , creatinine 1 and glucose 90. ASSESSMENT AND PLAN: Mr. Arcenio Lara is a 57-year-old male with anemia, has past medical history of cerebrovascular accident/transient ischemic attack with residual right arm and left leg deficits and aneurysm ruptured, presented [facility] 07[facility]16/2017 after having episode of change in speech and weakness. Getting aspirin. Continue statin and treatment of the hypertension. CAT scan of the head done. MRI of the head done. Will have to follow up with EEG and echocardiography, physical therapy/occupational therapy, gait training, speech pathologist. Continue current management. Review neurologist's notes. Echocardiography done by Dr. Sheldon, reviewed by me. Left ventricle, normal size; there is a normal left ventricular wall thickness; systolic function is severely impaired, anterolateral hypokinesis, transmitral Doppler flow pattern is grade 1 abnormal relaxation pattern. Gastrointestinal and deep venous thrombosis prophylaxis. Physical therapy. Repeat labs. We will follow up. Norma Robledo MD [facility] # [id number]
[2017-07-21] MEDS: Sodium Chloride 0.9% 1,000 ML IV SCH (08:14)
[2017-07-21] MEDS: NEBIVOLOL PO SCH (09:24)
[2017-07-21 12:45] VITALS: BP 159/88; PULSE 70
[2017-07-21 12:46] VITALS: RESP 15; TEMP 98
--- NOTE | 2017-07-21 20:36 | CON ---
DATE: 07/21/2017 REASON FOR CONSULTATION AND FOLLOWUP: Acute CVA, LV dysfunction, cardiac evaluation. BRIEF CLINICAL HISTORY: This is a 57-year-old male with past medical history of brain aneurysm, multiple clipping and coiling, admitted with acute CVA, slurring of speech and right-sided weakness when the patient was traveling on the bus and suddenly speech become slurred while talking to the it business analyst, so other passenger called the ambulance and brought here. MRI was consistent with large left-sided residual AVM, which presumably has undergone embolization and thrombosed. Yesterday, the patient had echo done, which shows severe decreased LV function and a Cardiology consult was called. The patient denies any chest pain, shortness of breath, or any palpitation prior to that. PAST MEDICAL HISTORY: Significant for multiple brain aneurysm, started at the age of 23 with the patient has a first rupture and then again at the age of 34. Subsequently, the patient underwent embolization and coiling, hypertension, history of right-sided weakness, history of embolization in the past. PAST SURGICAL HISTORY: As per HPI, history of embolization for the brain aneurysm. SOCIAL HISTORY: Denies smoking. Denies any history of alcohol abuse. 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 FAMILY HISTORY: Significant for mother at the age of 39 secondary to brain aneurysm rupture. ALLERGIES: NO KNOWN DRUG ALLERGIES. CURRENT MEDICATIONS: The patient is taking at home, vitamin, sildenafil, Viagra p.r.n. , Bystolic, amlodipine, valsartan, hydrochlorothiazide, and atorvastatin. REVIEW OF SYSTEMS: As follows. PHYSICAL EXAMINATION VITAL SIGNS: As follows, height of the patient is 6 feet 5 inches. Weight of the patient is not correct. Body mass is not correctly reported. Temperature afebrile, heart rate 61, blood pressure 136/76. HEENT: PERRLA. Extraocular muscles intact. NECK: Supple. No carotid bruit or thyromegaly. CHEST: Clear to auscultation. HEART: S1 and S2 regular. ABDOMEN: Soft. EXTREMITIES: Clubbing and cyanosis negative. LABORATORY DATA: EKG showed normal sinus with acute ST-T changes noted, LVH with a strain pattern. The patient had an echocardiography done yesterday that revealed normal LV size, normal LV wall thickness, reviewed by Dr. Sheldon, severely impaired LV function, severe inferolateral hypokinesis and trace tricuspid regurgitation, no mitral valve regurgitation noted, calculated ejection fraction of 35%. IMPRESSION: Acute cerebrovascular accident, transient ischemic attack secondary to brain aneurysm, history of multiple brain aneurysm, history of multiple embolization, hypertension, admitting blood pressure of 183/90 also 196/91, decreased LV function. RECOMMENDATIONS: We will get MUGA scan to assess LV function, suggested a stress test in 4 to 6 weeks if symptoms of acute . In the interim, continue lipid profile, TSH, hemoglobin A1c. We will follow with you. Aggressive control of blood pressure with a goal to keep blood pressure around 130-140/80-85. We will follow with you. We will add some Coreg as well to control the blood pressure because of the LV dysfunction with holding parameter. Hold for heart rate less than 60 and SBP less than 120. We will follow with you. Thank you, Dr. Robledo, for providing us the opportunity in taking care of the patient, Arcenio Lara. We will get the MUGA scan today to assess LV function. His stress test in 4 to 6 weeks for risk stratification. David West MD
--- NOTE | 2017-07-21 21:46 | CARD ---
APPROVED REPORT INDICATION EVALUATE LV AND RV EF PROCEDURE The above named patient recieved 28.3 millicuries of Tc99m tagged red blood cells intravenously. After achieving equilibrium, gated imaging of 16/frame/cycle was performed utillizing Gamma camera interfaced with a digital computer and gated device. Gated imaging was then performed in the left anterior oblique, anterior, and the left lateral projections. Findings Left Ventricle: The quality of the study is suboptimal due to technical difficulties. The left ventricle is mildly dilatedenlarged. The right ventricle is normal in size. Wall motion study shows diffuse hypokinesis of the left ventricle. RV wall motion is normal. The right atrium is dynamic. The remainder of the study is unremarkable. Impressions Moderate LV dysfunction with diffuse hypokinesis. LVEF = 32%. Normal RV wall motion.
== END 2017-07-21 19:03 | disposition home or self-care (01) | DRG 69 ==
LOC: ED 17:51 → ERH 21:08 → 2RSO 22:41
PROVIDERS: ADMIT Internal Medicine; ATTEND Internal Medicine
DX: G45.9 Transient cerebral ischemic attack, unspecified (principal); Q28.2 Arteriovenous malformation of cerebral vessels; I69.351 Hemiplegia and hemiparesis following cerebral infarction affecting right dominant side; R47.1 Dysarthria and anarthria; D50.9 Iron deficiency anemia, unspecified; E53.8 Deficiency of other specified B group vitamins; E78.00 Pure hypercholesterolemia, unspecified; G93.9 Disorder of brain, unspecified; I10 Essential (primary) hypertension; Z82.49 Family history of ischemic heart disease and other diseases of the circulatory system; Z91.19 Patient's noncompliance with other medical treatment and regimen; Z98.2 Presence of cerebrospinal fluid drainage device; R40.2412 Glasgow coma scale score 13-15, at arrival to emergency department

== ENCOUNTER 2018-03-25 12:13 | Observation (INO) | payer BC ==
[2018-03-25 12:19] VITALS: BMI 26.6
--- NOTE | 2018-03-25 12:29 | EDPD ---
HPI Stroke - General Historian: Patient - History of Present Illness Narrative History of Present Illness (Free Text): 03/25/18 12:19 57 y/o M, with past medical history of CVA with residual right sided weakness and right sided facial droop, presents to the ED for evaluation of worsening dysarthria and increased right sided weakness since 11 am this morning. Patient reports difficulty formulating words this morning associated with increased right sided weakness, prompting him to present to the ED for medical evaluation. Patient denies any other medical complaints. Patient denies any fever, chills, nausea, vomiting, abdominal pain, chest pain, shortness of breath, headache, dizziness, vision changes, neck pain, back pain or any other complaints. Onset:: Hours Timing: Improved Context: Home Associated Symptoms: Dysarthria Exacerbated by: Nothing Relieved by: Nothing - Location Location: Speech - Pain Assessment/Levels Maximum Severity: None rTPA Inclusion/Exclusion - Refusal of Treatment Patient Refused Treatment: No - Inclusion Criteria for Altepase Patient is 18 years or Older: Yes The Clinical Diagnosis of Ischemic Stroke That is Causing a Potentially Disabling Neurological Deficit: No Time of Onset is Well Established to be Less Than 270 Minute Before Treatment Would Begin: Yes Risk/Benefit Discussed With Patient/Family Member Present: Yes - Exclusion Criteria for Altepase Uncontrolled Hypertension at Time of Treatment (Systolic BP above 185 or Diastolic BP above 110 mmHg): No - Warning to TPA With Conditions Following Conditions Weighed Against Anticipated Benefit: Yes Past Medical History - Provider Review Nursing Documentation Reviewed: Yes - Past History Past History: No Previous - Infectious Disease Hx of Infectious Diseases: None - Tetanus Immunization Tetanus Immunization: Unknown - Cardiac Hx Hypertension: Yes - Pulmonary Hx Respiratory Disorders: No - Neurological HX Cerebrovascular Accident: Yes (R sided sweakness) - Hematological/Oncological Hx Blood Transfusions: No Hx Blood Transfusion Reaction: No - Musculoskeletal/Rheumatological Hx Falls: No - Psychiatric Hx Substance Use: No - Surgical History Hx Cardiac Catheterization: Yes (2012) - Anesthesia Hx Anesthesia: Yes Hx Anesthesia Reactions: No Hx Malignant Hyperthermia: No - Suicidal Assessment Feels Threatened In Home Enviroment: No Family/Social History - Family/Social History Family History: Non-Contributory Allergies/Home Meds Allergies/Adverse Reactions: Allergies No Known Allergies Allergy (Verified 11/05/12 10:04) Home Medications: Home Meds Medication Instructions Recorded Confirmed Atorvastatin [Lipitor] 1 tab PO DAILY 07/16/17 07/16/17 Ergocalciferol [Drisdol 50,000 1 cap PO Q7D 07/16/17 07/16/17 Intl Units Cap] Valsartan/Hydrochlorothiazide 1 tab PO DAILY 07/16/17 07/16/17 [Valsartan-Hctz 80-12.5 mg Tab] amLODIPine [Norvasc] 1 tab PO DAILY 07/16/17 07/16/17 Review of Systems - Physician Review All systems were reviewed & negative as marked: Yes - Review of Systems Constitutional: absent: Fevers Eyes: absent: Vision Changes Respiratory: absent: SOB, Cough Cardiovascular: absent: Chest Pain Gastrointestinal: absent: Abdominal Pain, Diarrhea, Nausea, Vomiting Genitourinary Male: absent: Dysuria, Urinary Output Changes Musculoskeletal: absent: Back Pain, Neck Pain Skin: absent: Rash Neurological: Focal Weakness (increased right sided weakness), Speech Changes. absent: Headache, Dizziness ED Stroke Physical Exam Vital Signs Reviewed: Yes Temperature: Afebrile Blood Pressure: Hypertensive Pulse: Regular Respiratory Rate: Normal Appearance: Positive for: Well-Appearing, Non-Toxic, Comfortable Pain Distress: None Mental Status: Positive for: Alert and Oriented X 3 - Systems Exam Head: Present: Atraumatic, Normocephalic Pupils: Present: PERRL Extroacular Muscles: Present: EOMI Conjunctiva: Present: Normal Neck: Present: Normal Range of Motion Respiratory/Chest: Present: Clear to Auscultation, Good Air Exchange. No: Respiratory Distress, Accessory Muscle Use Cardiovascular: Present: Regular Rate and Rhythm, Normal S1, S2. No: Murmurs Abdomen: Present: Normal Bowel Sounds. No: Tenderness, Distention, Peritoneal Signs Back: Present: Normal Inspection Upper Extremity: Present: Other (2/5 in strength in right upper extremity, 3/5 in strength in left upper extremity). No: Cyanosis, Edema Lower Extremity: Present: Other (2/5 strength in right lower extremity and 5/5 strength in left lower extremity). No: Edema Neurologic: Present: GCS=15, CN II-XII Intact, Normal Sensory Function, Memory Normal, Facial Droop (mild right sided facial droop noted.). No: Speech Normal (mild dysarthria) Skin: Present: Warm, Dry, Normal Color. No: Rashes Psychiatric: Present: Alert, Oriented x 3, Normal Insight, Normal Concentration Medical Decision Making ED Course and Treatment: 03/25/18 12:19 Impression: 57 year old M w/ h/o TIA/CVA w/ dysarthria and increased R sided weakness NIHSS: 8 Differential Diagnosis included but are not limited to: -- CVA Plan: -- Labs -- Chest X-ray -- EKG -- CT of Head -- IV Fluids -- Urinalysis --Keppra -- Reassess and disposition Prior Visits: Notes and results from previous visits were reviewed. Progress Notes: 03/25/18 12:19 CODE STROKE ACTIVATED. 03/25/18 12:44 Review of CTH w/ Dr. Ramsey(radiology) who states patient has a patent [employer] shunt with a left sided thalamic brain mass previously seen on MRI. Discussed patient's condition with Dr. Castro(neurology) who states patient is NOT a candidate for tPA. She requests patient to have CTA. 03/25/18 15:50 CTA unremarkable. Spoke to Dr. Robledo(PCP) who accepts patient for admission. - Lab Interpretations I have reviewed the lab results: Yes - RAD Interpretation Narrative RAD Interpretations (Text): 03/25/18 13:00 CT of head reviewed by radiologist, shows: FINDINGS: HEMORRHAGE: No intracranial hemorrhage. BRAIN: No definite, interval cytotoxic edema is appreciated at this time throughout the brain. A stable left thalamic mixed density lesion is appreciated with variable calcifications measuring 2.8 x 2.8 cm, not significantly changed in size in the interval taking differences in technique, including angulation, into account. Stable periventricular and subcortical white matter lucency seen greater at the parietal than frontal and temporal lobes. Posterior fossa contents appear grossly unremarkable though artifacts from right BAK[employer] DEMONSTRATOR shunt obscure right cerebral hemisphere somewhat. No significant mass effect throughout. No suspicious extra-axial fluid collection appreciable. VENTRICLES: Stable ventricular pattern status post right ventriculoperitoneal shunt catheter deployment terminating at the right lateral ventricle body/atrial junction once again. No definite hydrocephalus. CALVARIUM: Right parietal gallito hole accommodating shunt. PARANASAL SINUSES: Unremarkable as visualized. No significant inflammatory changes. MASTOID AIR CELLS: Unremarkable as visualized. No inflammatory changes. OTHER FINDINGS: Likely cerumen or other soft tissue at right external auditory canal likely abutting tympanic membrane. IMPRESSION: Stable head CT without contrast with no definite acute intracranial findings at this time. Right ventricular shunt placement unchanged with 2.8 cm mixed density mass reiterated at the left thalamus and stable white-matter signal changes are again seen greater at the parietal than frontal and temporal lobes bilaterally. No hydrocephalus. 03/25/18 13:21 Chest X-ray reviewed by radiologist, shows: FINDINGS: LUNGS: No active pulmonary disease. PLEURA: No significant pleural effusion identified, no pneumothorax apparent. CARDIOVASCULAR: No aortic atherosclerotic calcification present. Mild cardiomegaly no pulmonary vascular congestion. OSSEOUS STRUCTURES: No significant abnormalities. VISUALIZED UPPER ABDOMEN: Normal. OTHER FINDINGS: Right IJ line terminates in the lower aspect of the right atrium IMPRESSION: No active disease. Radiology Orders: 03/25/18 12:19 HEAD W/O (CODE STROKE) [CT] Stat CHEST PORTABLE [RAD] Stat Fleet Service Clerk: Radiologist - Medication Orders Current Medication Orders: Sodium Chloride (Sodium Chloride 0.9%) 1,000 mls @ 100 mls/hr IV .Q10H DAMARI - Scribe Statement The provider has reviewed the documentation as recorded by the Scribe Joanie Barclay. All medical record entries made by the Scribe were at my direction and personally dictated by me. I have reviewed the chart and agree that the record accurately reflects my personal performance of the history, physical exam, medical decision making, and the department course for this patient. I have also personally directed, reviewed, and agree with the discharge instructions and disposition. NIHSS Scale ([place]) Time Performed: 12:39 - How Severe is the Stoke Baseline Level of Consciousness: 0=Alert LOC to Questions: 0=Both comments correct LOC to commands: 0=Obeys both correctly Best Gaze: 0=Normal Visual: 0=No visual loss Facial: 2=Partial (lower face paralysis) Motor Arm - Left: 0=No drift Motor Arm - Right: 2=Falls before 10 sec Motor Leg - Left: 0=No drift Motor Leg - Right: 2=Falls before 5 sec Limb Ataxia: 0=Absent Sensory: 0=Normal Best Language: 1=Mild to moderate aphasia Dysarthia: 1=Mild to moderate slurring Extinction & Inattention (Neglect): 0=Normal, no object Score: 8 Risk Level: Mod Stroke Risk Disposition/Present on Arrival - Present on Arrival History of DVT/PE: No History of Uncontrolled Diabetes: No Urinary Catheter: No History Surgical Site Infection Following: None - Disposition Referrals: Walker Ibarra MD [Primary Care Provider] - Follow up with primary
[2018-03-25 12:47] LABS: BASO # 0.01 K/mm3 (0.0-2.0); BASO % 0.2 % (0.0-3.0); EOS # 0.1 (0.0-0.7); EOS % 1.5 % (1.5-5.0); GRAN # 2.5 (1.4-6.5); GRAN % 52.8 % (50.0-68.0); HEMOGLOBIN 12.4 g/dL (14.0-18.0); LYMPH # 1.8 (1.2-3.4); LYMPH % 38.5 % (22.0-35.0); MEAN CELL VOLUME 88.8 fl (80.0-105.0); MEAN CORPUSCULAR HEMOGLOBIN 27.9 pg (25.0-35.0); MEAN CORPUSCULAR HGB CONC 31.4 g/dl (31.0-37.0); MEAN PLATELET VOLUME 10.2 fl (7.0-11.0); MONO # 0.3 (0.1-0.6); RBC 4.45 10^6/uL (3.5-6.1); RED CELL DISTRIBUTION WIDTH 15.9 % (11.5-14.5); WHITE BLOOD COUNT 4.7 10^3/uL (4.5-11.0)
--- NOTE | 2018-03-25 12:53 | CT ---
Date of service: 03/25/2018 PROCEDURE: CT HEAD WITHOUT CONTRAST. HISTORY: Code Stroke COMPARISON: None available. TECHNIQUE: Axial computed tomography images were obtained through the head/brain without intravenous contrast. Radiation dose: Total exam DLP = 995.67 mGy-cm. This CT exam was performed using one or more of the following dose reduction techniques: Automated exposure control, adjustment of the mA and/or kV according to patient size, and/or use of iterative reconstruction technique. FINDINGS: HEMORRHAGE: No intracranial hemorrhage. BRAIN: No definite, interval cytotoxic edema is appreciated at this time throughout the brain. A stable left thalamic mixed density lesion is appreciated with variable calcifications measuring 2.8 x 2.8 cm, not significantly changed in size in the interval taking differences in technique, including angulation, into account. Stable periventricular and subcortical white matter lucency seen greater at the parietal than frontal and temporal lobes. Posterior fossa contents appear grossly unremarkable though artifacts from right [employer] shunt obscure right cerebral hemisphere somewhat. No significant mass effect throughout. No suspicious extra-axial fluid collection appreciable. VENTRICLES: Stable ventricular pattern status post right ventriculoperitoneal shunt catheter deployment terminating at the right lateral ventricle body/atrial junction once again. No definite hydrocephalus. CALVARIUM: Right parietal gallito hole accommodating shunt. PARANASAL SINUSES: Unremarkable as visualized. No significant inflammatory changes. MASTOID AIR CELLS: Unremarkable as visualized. No inflammatory changes. OTHER FINDINGS: Likely cerumen or other soft tissue at right external auditory canal likely abutting tympanic membrane. IMPRESSION: Stable head CT without contrast with no definite acute intracranial findings at this time. Right ventricular shunt placement unchanged with 2.8 cm mixed density mass reiterated at the left thalamus and stable white-matter signal changes are again seen greater at the parietal than frontal and temporal lobes bilaterally. No hydrocephalus. Findings discussed with Dr. Yeung with written down and read back verification 03/25/2018 12:39 p.m.
[2018-03-25 12:59] LABS: ALB/GLOB RATIO 1.1 (1.1-1.8); ALBUMIN 4.4 g/dL (3.0-4.8); ALT/SGPT 22 U/L (7-56); AST/SGOT 22 U/L (17-59); BLOOD UREA NITROGEN 16 mg/dL (7-21); CALCIUM 9.7 mg/dL (8.4-10.5); GFR NON-AFRICAN AMERICAN > 60; HDL CHOLESTEROL 35 mg/dL (29-60); INR 1.06; PARTIAL THROMBOPLASTIN TIME 30.2 Seconds (25.1-36.5); PROTHROMBIN TIME 12.2 SECONDS (9.4-12.5)
[2018-03-25] MEDS ORDERED: Iohexol 350 MG/100 ML VIAL ONE (13:02)
--- NOTE | 2018-03-25 13:02 | RAD ---
Date of service: 03/25/2018 HISTORY: Code Stroke COMPARISON: 07/16/2017 FINDINGS: LUNGS: No active pulmonary disease. PLEURA: No significant pleural effusion identified, no pneumothorax apparent. CARDIOVASCULAR: No aortic atherosclerotic calcification present. Mild cardiomegaly no pulmonary vascular congestion. OSSEOUS STRUCTURES: No significant abnormalities. VISUALIZED UPPER ABDOMEN: Normal. OTHER FINDINGS: Right IJ line terminates in the lower aspect of the right atrium IMPRESSION: No active disease.
[2018-03-25 13:10] LABS: LDL CHOLESTEROL 115 mg/dL (0-129)
[2018-03-25 13:13] LABS: B-TYPE NATRIURETIC PEPTIDE 506 pg/mL (0-450); TROPONIN I 0.02 ng/mL
[2018-03-25] MEDS: Sodium Chloride 0.9% 1,000 ML IV SCH (13:49)
[2018-03-25] MEDS ORDERED: levETIRAcetam 500 mg/5ml UD cups PO STA (14:13)
--- NOTE | 2018-03-25 15:28 | CT ---
Date of service: 03/25/2018 PROCEDURE: CT Angiography of the neck with contrast HISTORY: brain mass seen on CT, not tPA candidate COMPARISON: CT a 510 2017 TECHNIQUE: Contiguous axial images of the neck were obtained from the level of the skull-base to the superior mediastinum in the arteriographic phase of enhancement. Coronal and sagittal reformats or also generated. IV contrast dose: 100 cc of Omni 350 Radiation dose: Total exam DLP = 575.36 mGy-cm. This CT exam was performed using one or more of the following dose reduction techniques: Automated exposure control, adjustment of the mA and/or kV according to patient size, and/or use of iterative reconstruction technique. FINDINGS: RIGHT CAROTID ARTERIES: No significant stenosis LEFT CAROTID ARTERIES: Small caliber left internal carotid artery with no focal stenosis. VERTEBRAL ARTERIES: Right Vertebral Artery: Normal. Left Vertebral Artery: Normal. OTHER FINDINGS: no aortic atherosclerotic calcification or mural plaque present. IMPRESSION: No significant stenosis CT Angiography of the Brain. HISTORY: brain mass seen on CT, not tPA candidate COMPARISON: None available. TECHNIQUE: CT angiography of the intracranial arteries was performed. Coronal and sagittal maximum intensity projection reformated images were generated. Radiation dose: Total exam DLP = 575.36 mGy-cm. This CT exam was performed using one or more of the following dose reduction techniques: Automated exposure control, adjustment of the mA and/or kV according to patient size, and/or use of iterative reconstruction technique. FINDINGS: INTERNAL CEREBRAL ARTERIES: Unremarkable. The skull base, petrous, cavernous and supraclinoid segments are bilaterally widely patent. ANTERIOR CEREBRAL ARTERIES: Unremarkable. A1 and A2 segments are widely patent. Smaller distal branches unremarkable, as visualized. MIDDLE CEREBRAL ARTERIES: Unremarkable. M1 and M2 segments are widely patent. Perisylvian branches grossly symmetric. POSTERIOR CIRCULATION: Basilar Artery: Unremarkable. Distal Vertebral Arteries: Unremarkable. Posterior Cerebral Arteries: Unremarkable. Posterior Inferior Cerebellar Arteries: Unremarkable. ANEURYSM/ VASCULAR MALFORMATIONS: None. OTHER FINDINGS: There is a right-sided ventricular shunt. There is chronic encephalomalacia in the left thalamus and basal ganglia. No evidence of AVM IMPRESSION: Unremarkable CT Angiography of the Brain.
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
[2018-03-25] MEDS: levETIRAcetam 500 mg/5ml UD cups PO SCH (20:40)
[2018-03-26] MEDS: Sodium Chloride 0.9% 1,000 ML IV SCH ×2 (05:39→09:25)
[2018-03-26 06:44] LABS: HEMOGLOBIN 11.6 g/dL (14.0-18.0); IRON 66 ug/dL (45-180); MEAN CORPUSCULAR HEMOGLOBIN 27.4 pg (25.0-35.0); MEAN CORPUSCULAR HGB CONC 31.1 g/dl (31.0-37.0); MEAN PLATELET VOLUME 10.1 fl (7.0-11.0); RBC 4.24 10^6/uL (3.5-6.1); RED CELL DISTRIBUTION WIDTH 15.8 % (11.5-14.5); WHITE BLOOD COUNT 4.7 10^3/uL (4.5-11.0)
[2018-03-26 06:53] LABS: % IRON SATURATION 30 % (20-55); TOTAL IRON BINDING CAPACITY 221 ug/dL (261-462)
[2018-03-26 08:18] VITALS: RESP 20
[2018-03-26] MEDS: levETIRAcetam 500 mg/5ml UD cups PO SCH (09:22)
--- NOTE | 2018-03-26 09:28 | CARD ---
APPROVED REPORT Date of service: 03/25/2018 EKG Measurement Heart [id number] <Conclusion> Normal sinus rhythm Voltage criteria for left ventricular hypertrophy T wave abnormality, consider inferolateral ischemia Abnormal ECG
[2018-03-26 14:03] LABS: FOLATE 13.6 ng/mL
--- NOTE | 2018-03-26 15:26 | CP.PCM.PN ---
Subjective - Date & Time of Evaluation Date of Evaluation: 03/26/18 Time of Evaluation: 15:23 - Subjective Subjective: Neurology Progress Note: Patient seen and assessed at bedside with patients present. No acute events noted overnight. Patient denies any complaints at this time and 12 point ROS unremarkable. Objective - Vital Signs/Intake and Output Vital Signs (last 24 hours): Temp Pulse Resp BP Pulse Ox 97.5 F L 62 20 153/87 H 99 03/26/18 08:18 03/26/18 09:21 03/26/18 08:18 03/26/18 09:25 03/26/18 08:18 Intake and Output: 03/26/18 03/26/18 06:59 18:59 Intake Total 1680 Output Total 1000 Balance 680 - Medications Medications: Current Medications Amlodipine Besylate (Norvasc) 10 mg PO DAILY [facility] Last Admin: 03/26/18 09:25 Dose: 10 mg Aspirin (Aspirin Chewable) 81 mg PO DAILY [facility] Last Admin: 03/26/18 09:21 Dose: 81 mg Atorvastatin Calcium (Lipitor) 40 mg PO DIN [facility] Last Admin: 03/25/18 21:16 Dose: 40 mg Carvedilol (Coreg) 6.25 mg PO BID [facility] Last Admin: 03/26/18 09:21 Dose: 6.25 mg Famotidine (Pepcid) 40 mg PO HS [facility] Last Admin: 03/25/18 21:17 Dose: 40 mg Fenofibrate (Tricor) 145 mg PO DAILY [facility] Last Admin: 03/26/18 09:25 Dose: 145 mg Furosemide (Lasix) 20 mg PO DAILY [facility] Last Admin: 03/26/18 09:22 Dose: 20 mg Sodium Chloride (Sodium Chloride 0.9%) 1,000 mls @ 100 mls/hr IV .Q10H [facility] Last Admin: 03/26/18 09:25 Dose: 100 mls/hr Levetiracetam (Keppra) 500 mg PO BID [facility] Last Admin: 03/26/18 09:22 Dose: 500 mg - Labs Labs: 03/26/18 06:00 03/26/18 06:00 PT 12.2 SECONDS (9.4-12.5) 03/25/18 12:30 INR 1.06 03/25/18 12:30 APTT 30.2 Seconds (25.1-36.5) 03/25/18 12:30 - Constitutional Appears: Non-toxic, No Acute Distress - Head Exam Head Exam: ATRAUMATIC, NORMOCEPHALIC - Eye Exam Eye Exam: EOMI, Normal appearance, PERRL. absent: Conjunctival injection, Nystagmus, Periorbital swelling, Periorbital tenderness, Scleral icterus Pupil Exam: NORMAL ACCOMODATION, PERRL - Neck Exam Neck Exam: Full ROM - Respiratory Exam Respiratory Exam: Clear to Ausculation Bilateral, NORMAL BREATHING PATTERN - Cardiovascular Exam Cardiovascular Exam: REGULAR RHYTHM - GI/Abdominal Exam GI & Abdominal Exam: Soft, Normal Bowel Sounds. absent: Tenderness - Neurological Exam Neurological Exam: Alert, Awake, CN II-XII Intact, Oriented x3 Neuro motor strength exam: Left Upper Extremity: 5, Right Upper Extremity: 2/1, Left Lower Extremity: 5, Right Lower Extremity: 2/1 Additional comments: NIHSS Scale unchanged from baseline at 8; Mild dysarthria noted to be chronic; RUE and RLE deficits noted to be chronic - Psychiatric Exam Psychiatric exam: Normal Affect, Normal Mood - Skin Skin Exam: Dry, Intact, Normal Color, Warm Assessment and Plan - Assessment and Plan (Free Text) Assessment: 57 year old male with a past medical history significant for CVA with residual right sided upper and lower extremity and Cerebral AVM with Intranidal Aneurysms s/p multiple repairs and [employer] shunt who presented with dysarthria and expressive aphasia. Plan: -CT Head showed stable AVM with no definite acute intracranial abnormalities -CTA Head/Neck showed stable AVM and no acute changes in cerebral and vertebral vasculature -Continue Keppra 500mg PO BID as an outpatient -Continue scheduled outpatient follow up with Neurologist, Dr. Ibarra, for [employer] sh unt/AVM management -No further neurological imaging/interventions indicated at this time -Further recommendations as per Dr. Eller Patient seen and case discussed with attending, Dr. Eller. Zaid Duncan PGY2
[2018-03-26 16:18] VITALS: BP 152/91; PULSE 67; TEMP 97.7; O2SAT 100
--- NOTE | 2018-03-26 20:39 | CON ---
DATE: 03/26/2018 LOCATION: Room 361, bed 1. REASON FOR CONSULTATION: CVA, possible TIA, dysfunction, cardiomyopathy. HISTORY OF PRESENT ILLNESS: A 57-year-old male who had brain aneurysm for which he had multiple clipping and calling admitted with history that he had residual weakness on the right side from previous old CVA and now this weakness was increased suddenly and also he has some dysarthria. The patient denies any chest pain, shortness of breath or palpitations, associated with these episode. Denies any exertion with chest pain or shortness of breath. He was last admission, he was told has a LV ejection fraction low and he says he follows with Dr. Ibarra, Medical Record Coder in [place]. The patient is now conscious, alert and speaking normally and he says his weakness on the right side has improved and was back to the residual he has from the previous old CVA. PAST MEDICAL HISTORY: Significant for brain aneurysm multiple brain aneurysm, started at the age of 23 with the patient has a first rupture and then again at the age of 34. Subsequently, the patient underwent embolization and coiling. The patient has history of hypertension, history of right-sided weakness, history of abnormal speech, he had CVA, but after that it was cleared. PAST SURGICAL HISTORY: As per patient, the patient has embolization for the brain aneurysm. PERSONAL HISTORY: Denies smoking. Denies drinking. FAMILY HISTORY: Mother at age 39, secondary to brain aneurysm rupture. ALLERGIES: NO KNOWN ALLERGIES. HOME MEDICATIONS: The patient is on medication at home, the patient on Amlodipine, Lipitor and Valsartan/hydrochlorothiazide, Valsartan was 80+ 12.5 mg hydrochlorothiazide. REVIEW OF SYSTEMS: All systems reviewed, positives mentioned in the history. The patient denies any exertional cardiac symptoms. PHYSICAL EXAMINATION: VITAL SIGNS: Blood pressure 153/87, respirations 20, pulse 62 and temperature 97.5. HEENT: Head is normocephalic. Eyes: Pupils normal. Conjunctivae slightly pale. NECK: JVP low. Carotid equal. Thorax AP diameter normal. LUNGS: Clear. CARDIOVASCULAR: S1 and S2. ABDOMEN: Soft and nontender. No organomegaly. EXTREMITIES: No clubbing. No cyanosis. NEUROLOGIC: The patient's speech is normal at this movement. The patient has residual weakness on the right side of the body as before from previous CVA. LABORATORY DATA: WBC 4.7, hemoglobin 11.6, hematocrit 37.3 and platelet 175. Calcium 3.6, sodium 141, potassium 4.1, BUN 16, creatinine 1.1 and which is not significant. Triglyceride 191, cholesterol 214 and LDL 115. Chest x-ray clean. EKG shows normal sinus rhythm. Head and neck CTA showed there is right sided ventricular shunt chronic encephalomalacia and the left thalamus and basal ganglia. No evidence of AVM seen on this. The patient's previous cardiac workup, the patient had stress test on 09/03/2017 and showed fixed defect, no ischemia, LV ejection fraction 36%. Echo on 07/20/2017 showed inferolateral hypokinesis LV ejection fraction 35% grade I diastolic dysfunction. The patient had MUGA scan 07/21/2017, it showed LV ejection fraction of 32%. DIAGNOSES: Transient dysarthria and increase weakness of the right side, rule out transient ischemia attack, hypertension, cardiomyopathy, aneurysm with a brain, status post embolization and previous old cerebrovascular accident. PLAN: The patient is on aspirin 81 mg daily, carvedilol 6.25 b.i.d. and levetiracetam 500 mg b.i.d., atorvastatin 40 mg daily, amlodipine 10 daily, famotidine 240 mg at bedtime, TriCor 145 daily. We will continue aspirin 81 mg daily, carvedilol 6.25 b.i.d. furosemide 20 mg daily, fenofibrate 145 daily. The patient states he see the Medical Record Coder for his low ejection fraction heart Dr. Ibarra in [place]. We will continue to follow with that. David Boothe MD
== END 2018-03-26 17:09 | disposition home or self-care (01) ==
LOC: ED 12:13 → INTOOBSV 15:47 → ERH 15:47 → 3RNO 19:38
PROVIDERS: ADMIT Internal Medicine; ATTEND Internal Medicine
DX: I69.351 Hemiplegia and hemiparesis following cerebral infarction affecting right dominant side (principal); R47.01 Aphasia; I10 Essential (primary) hypertension; Z98.2 Presence of cerebrospinal fluid drainage device
CPT/HCPCS: 36415; 70450; 70496; 70498; 71045; 80053; 80061; 82607; 82746; 82948; 83036; 83540; 83550; 83880; 84132; 84484; 85025; 85027; 85610; 85730; 86850; 86900; 93005; 97116; 97161; 99285; G0378; G8978; G8979; J7030; Q9967

== ENCOUNTER 2018-05-29 17:31 | Inpatient (IN) | payer BC ==
[2018-05-29 17:32] VITALS: BMI 26.6
--- NOTE | 2018-05-29 18:06 | ED PDOC ---
Arrival/HPI - General Historian: Patient, Parent, Family - History of Present Illness Narrative History of Present Illness (Text): 05/29/18 18:00 57 y/o male, pmh including htn/brain aneurysms/CVA with rt. sided paralysis and extremity residual weakness/dyarthria/rt. sided facial droop/aphasia, nkda, bib family c/o an transient episode of slurred speech yesterday around 5pm yesterday but resolved x 2 days. Pt. and the stated that he had and episode of slurred speech yesterday on top of his dysarthria, concerning for stroke symptoms again so they are here for evaluation. Pt. has chronic rt. facial droop with dysarthria/RUE and RLE weakness residual from previous stroke. Pt. stated that he has mild cough and URI symptoms for the past few days, feels fatigue and tired as well, no fever or chills, no night sweat, no rash, no dizziness, no change in vision, no blurry vision, no other medical or psychological complaints. Past Medical History - Provider Review Nursing Documentation Reviewed: Yes - Past History Past History: No Previous - Infectious Disease Hx of Infectious Diseases: None - Tetanus Immunization Tetanus Immunization: Unknown - Cardiac Hx Hypertension: Yes - Pulmonary Hx Respiratory Disorders: No - Neurological HX Cerebrovascular Accident: Yes (R sided sweakness) - HEENT Hx HEENT Disorder: No - Renal Hx Renal Disorder: No - Endocrine/Metabolic Hx Endocrine Disorders: No - Hematological/Oncological Hx Blood Transfusions: No Hx Blood Transfusion Reaction: No - Integumentary Hx Dermatological Disorder: No - Musculoskeletal/Rheumatological Hx Falls: No - Gastrointestinal Hx Gastrointestinal Disorders: No - Genitourinary/Gynecological Hx Genitourinary Disorders: No - Psychiatric Hx Substance Use: No - Surgical History Hx Cardiac Catheterization: Yes (2012) - Anesthesia Hx Anesthesia: Yes Hx Anesthesia Reactions: No Hx Malignant Hyperthermia: No - Suicidal Assessment Feels Threatened In Home Enviroment: No Family/Social History - Physician Review Nursing Documentation Reviewed: Yes Family/Social History: Unknown Family HX Smoking Status: Never Smoked Hx Alcohol Use: No Hx Substance Use: No Hx Substance Use Treatment: No Allergies/Home Meds Allergies/Adverse Reactions: Allergies No Known Allergies Allergy (Verified 11/05/12 10:04) Home Medications: Home Meds Medication Instructions Recorded Confirmed Nebivolol [Bystolic] 20 mg PO DAILY 03/25/18 05/29/18 Review of Systems - Review of Systems Constitutional: Fatigue. absent: Fevers Eyes: absent: Vision Changes ENT: absent: Hearing Changes, Rhinorrhea Respiratory: Cough. absent: SOB, Sputum, Wheezing Cardiovascular: absent: Chest Pain Gastrointestinal: absent: Abdominal Pain, Diarrhea, Nausea, Vomiting Musculoskeletal: absent: Arthralgias, Back Pain Skin: absent: Rash, Pruritis Neurological: Focal Weakness (chronic), Speech Changes (chronic dysarthria), Facial Droop (chronic). absent: Headache, Dizziness, Gait Changes, Disequilibrium, Seizure Physical Exam Vital Signs Reviewed: Yes Temperature: Afebrile Blood Pressure: Hypertensive Pulse: Regular Respiratory Rate: Normal Appearance: Positive for: Well-Appearing, Non-Toxic, Comfortable Pain Distress: None Mental Status: Positive for: Alert and Oriented X 3 - Systems Exam Head: Present: Atraumatic, Normocephalic Pupils: Present: PERRL Extroacular Muscles: Present: EOMI Conjunctiva: Present: Normal Ears: Present: NORMAL TM, Normal Canal. No: Erythema Mouth: Present: Moist Mucous Membranes Pharnyx: Present: Normal. No: ERYTHEMA, EXUDATE, TONSILS ENLARGED Nose (External): Present: Atraumatic. No: Abrasion, Contusion, Laceration Nose (Internal): Present: Normal Inspection, No Active Bleeding. No: Rhinorrhea, Septal Hematoma, Epistaxis Neck: Present: Normal Range of Motion, Trachea Midline. No: Meningeal Signs, MIDLINE TENDERNESS, Lymphadenopathy Respiratory/Chest: Present: Clear to Auscultation, Good Air Exchange. No: Respiratory Distress, Accessory Muscle Use Cardiovascular: Present: Regular Rate and Rhythm, Normal S1, S2. No: Murmurs Abdomen: No: Tenderness, Distention, Peritoneal Signs, Rebound, Guarding Back: Present: Normal Inspection Upper Extremity: Present: Normal Inspection, Other (Rt. bicep atrophy). No: Cyanosis, Edema, Tenderness, Swelling Lower Extremity: Present: Normal Inspection. No: Edema Neurological: Present: GCS=15, CN II-XII Intact, Memory Normal, Other (Please see my NIHSS score. Rt. pronator drift noted. RUE and RLE motor 2/5). No: Speech Normal (dysarthria) Skin: Present: Warm, Dry, Normal Color. No: Rashes Psychiatric: Present: Alert, Oriented x 3, Normal Insight, Normal Concentration Medical Decision Making ED Course and Treatment: 05/29/18 18:25 TIA vs. ICH vs. Stroke vs. CVA -Labs -CT head -Chest xray -EKG -IVF -Swallow evaluation -NIHSS is 5 -Observe and reassess 05/29/18 19:32 -EKG: NSR @ 74 BPM, no ST elevation or depression, Chronic T wave inversion lead II/III/aVF and V4-V6 compared with previous ekgs. -CT head 3.3 cm zone of mixed increased/decreased attenuation in the left internal capsule, putamen and thalamic nucleus thought compatible with intraparenchymal hemorrhage and edema. A thin left subdural hypodense collection is noted thought compatible with subacute/chronic subdural hematoma. Asymmetrically decreased attenuation of the left centrum semiovale ovale thought compatible with chronic microvascular disease. Right ventriculoperitoneal shunt tube as described above. -Chest xray -Rapid flu is negativev -Labs are non-significant -UA ordered and no sample. -Pt.'s symptoms is currently resolved, baseline rt. sided weakness and dysarthria with transient episode of aphasia yesterday, concerning for TIA. Since it's over 24 hours so no Code Stroke is activated. -Pt. will need admission for further evaluation for TIA work up. 05/29/18 19:47 -I spoke to DR. Linn, discussed about the case and reviewed the CT result together. He recommend observation and no surgical approach at this time, monitor and repeat CT head tomorrow. He will see the patient tomorrow. He recommend neurologist consult as well which I paged out to Dr. Eller/Dr. Castro 05/29/18 20:03 -I spoke to Dr. Castro, discussed about the case and reviewed the CT result together. She recommend admit to ICU/no anticoagulant/CTA head/neck as follow up and BP controlled. She will see the patient tomorrow morning. -I spoke to the ICU oncall Dr. San, discussed about the case/labs/radiology and specialists consults, he will come to evaluate the patient and admit to ICU plus continue of the care. Evaluating the patient now in the ER. -Paged out to Dr. Robledo, pmd as well. 05/29/18 20:19 -I spoke to Dr. Robledo about this case/labs/radiology results and she agreed to admit to ICU, she will follow up the care with ICU and other specialists. -Case discussed and plan of care discussed with the ER attending Dr. Yeung, she agreed on the plan of care and dispo. 05/29/18 22:28 -CTA: Unremarkable CTA of the head and neck. Right sided ventriculoperitoneal shunt tubing noted. - Critical Care Critical Care Minutes: 30 minutes Critical Care Time: Unstable Narrative Critical Care (Text): 05/29/18 19:49 intracranial bleeding, neurological complaints, neurosurgery and neurologist consult. - RAD Interpretation Radiology Orders: Chest xray: No active disease EXAM: CT Head without Intravenous Contrast. CLINICAL HISTORY: Weakness, transient episode of slurred speech TECHNIQUE: Axial computed tomography images of the head/brain without intravenous contrast. 1079.88 mGy-cm COMPARISON: None provided. FINDINGS: BRAIN A 2.9 x 3.3 cm zone of mixed decreased and increased attenuation is noted in the left internal capsule, left putamen and left thalamus thought compatible with acute intraparenchymal hemorrhage and associated edema. No mass lesion. No CT evidence for acute territorial infarct. No midline shift. Additionally, there is a small collection along the inner skull table of the left hemicranium suspicious for subacute/chronic left subdural hematoma. Asymmetrically decreased attenuation is seen in the left centrum semiovale thought compatible with chronic microvascular disease. VENTRICLES: No hydrocephalus. There is extrinsic compression and effacement upon the lateral margin of the left lateral ventricle. A right ventriculoperitoneal shunt tubing is seen having its distal tip in the posterior horn of the right lateral ventricle and exits a gallito hole in the right parietal skull. ORBITS: The orbits are unremarkable. SINUSES AND MASTOIDS: The paranasal sinuses and mastoid air cells are clear. BONES: No fracture. SOFT TISSUES: Unremarkable. IMPRESSION: 1. 3.3 cm zone of mixed increased/decreased attenuation in the left internal capsule, putamen and thalamic nucleus thought compatible with intraparenchymal hemorrhage and edema. 2. A thin left subdural hypodense collection is noted thought compatible with subacute/chronic subdural hematoma. 3. Asymmetrically decreased attenuation of the left centrum semiovale ovale thought compatible with chronic microvascular disease. 4. Right ventriculoperitoneal shunt tube as described above. Electronically signed on May 29, 2018 7:28:35 PM EDT by: Osvaldo Anguiano M.D., MBA Certified By ABR & [employer] Fellowship Trained MRI and CT Specialist CTA head/neck EXAM: CTA Head and Neck with Intravenous Contrast. CLINICAL HISTORY: INTRACRANIAL BLEED BASAL GANGLIA TECHNIQUE: Axial CTA images of the head and neck performed with intravenous contrast. MIP reconstructed images were created and reviewed. 645.93 mGy-cm CONTRAST: With; OMNI 350 100 ml was injected intravenously without incident. COMPARISON: Comparison is made to CT brain examination performed earlier the same date. FINDINGS: VASCULATURE: NECK: COMMON CAROTID ARTERIES No significant canal stenosis. No dissection or occlusion. Minimal focal atheromatous plaquing seen in the left carotid bulb. EXTERNAL CAROTID ARTERIES Patent. NECK: INTERNAL CAROTID ARTERIES No stenosis by NASCET criteria. No dissection or occlusion. VERTEBRAL ARTERIES No significant canal stenosis. No dissection or occlusion. HEAD: ANTERIOR CEREBRAL ARTERIES No significant stenosis. No occlusion. No aneurysm. MIDDLE CEREBRAL ARTERIES No significant stenosis. No occlusion. No aneurysm. POSTERIOR CEREBRAL ARTERIES No significant stenosis. No occlusion. No aneurysm. BASILAR ARTERY No significant stenosis. No occlusion. No aneurysm. OTHER: SOFT TISSUES No acute finding. BONES No acute osseous abnormality. IMPRESSION: 1. Unremarkable CTA of the head and neck. 2. Right sided ventriculoperitoneal shunt tubing noted. Electronically signed on May 29, 2018 10:18:48 PM EDT by: Osvaldo Anguiano M.D., CELE Certified By ABR & CBC[employer] Fellowship Trained MRI and CT Specialist Pharmacy Data Analyst: Radiologist NIHSS Scale (Watts) Time Performed: 18:19 - How Severe is the Stoke Baseline Level of Consciousness: 0=Alert LOC to Questions: 0=Both comments correct LOC to commands: 0=Obeys both correctly Best Gaze: 0=Normal Visual: 0=No visual loss Facial: 1=Minor asymmetry Motor Arm - Left: 0=No drift Motor Arm - Right: 1=Drift noted before 10 sec Motor Leg - Left: 0=No drift Motor Leg - Right: 1=Drift before 5 sec Limb Ataxia: 0=Absent Sensory: 0=Normal Best Language: 1=Mild to moderate aphasia Dysarthia: 1=Mild to moderate slurring Extinction & Inattention (Neglect): 0=Normal, no object Score: 5 Risk Level: Mod Stroke Risk - PA / WOOD DRILL OPERATOR / Resident Statement MD/DO has reviewed & agrees with the documentation as recorded. Disposition/Present on Arrival - Present on Arrival Any Indicators Present on Arrival: No History of DVT/PE: No History of Uncontrolled Diabetes: No Urinary Catheter: No History Surgical Site Infection Following: CABG - Mediastinitis, None - Disposition Have Diagnosis and Disposition been Completed?: No Diagnosis: TIA (transient ischemic attack), Brain aneurysm, Intracranial bleed Disposition: HOSPITALIZED Disposition Time: 22:28 Patient Problems: Current Active Problems Problem Status Onset TIA (transient ischemic attack) Acute Brain aneurysm Acute Intracranial bleed Acute Condition: GUARDED
[2018-05-29 18:40] LABS: BASO # 0.02 K/mm3 (0.0-2.0); BASO % 0.4 % (0.0-3.0); EOS # 0.1 (0.0-0.7); EOS % 1.5 % (1.5-5.0); HEMOGLOBIN 11.9 g/dL (14.0-18.0); LYMPH # 1.5 (1.2-3.4); LYMPH % 33.3 % (22.0-35.0); MEAN CELL VOLUME 87.6 fl (80.0-105.0); MEAN CORPUSCULAR HEMOGLOBIN 27.2 pg (25.0-35.0); MEAN CORPUSCULAR HGB CONC 31.1 g/dl (31.0-37.0); MEAN PLATELET VOLUME 10.8 fl (7.0-11.0); MONO # 0.5 (0.1-0.6); MONO % 9.9 % (1.0-6.0); RBC 4.37 10^6/uL (3.5-6.1); RED CELL DISTRIBUTION WIDTH 14.9 % (11.5-14.5); WHITE BLOOD COUNT 4.6 10^3/uL (4.5-11.0)
[2018-05-29 18:49] LABS: INR 1.21; PROTHROMBIN TIME 13.4 SECONDS (9.4-12.5)
[2018-05-29] MEDS: Sodium Chloride 0.9% 1,000 ML IV SCH (18:54)
[2018-05-29 18:58] LABS: URINE BILIRUBIN NEGATIVE (NEGATIVE); URINE BLOOD NEGATIVE (NEGATIVE); URINE GLUCOSE (UA) NEGATIVE (NEGATIVE); URINE LEUKOCYTE ESTERASE NEGATIVE Leu/uL (NEGATIVE); URINE PROTEIN NEGATIVE mg/dL (<30 mg/dL); URINE UROBILINOGEN 0.2 E.U./dL (<1 E.U./dL)
[2018-05-29 19:02] LABS: URINE APPEARANCE CLEAR (CLEAR); URINE COLOR YELLOW (YELLOW)
[2018-05-29 19:12] LABS: ALB/GLOB RATIO 1.2 (1.1-1.8); ALT/SGPT 19 U/L (7-56); AST/SGOT 24 U/L (17-59); BLOOD UREA NITROGEN 20 mg/dL (7-21); CALCIUM 9.7 mg/dL (8.4-10.5); GFR NON-AFRICAN AMERICAN 57
[2018-05-29 19:23] LABS: TROPONIN I < 0.01 ng/mL
[2018-05-29] MEDS ORDERED: Iohexol 350 MG/100 ML VIAL ONE (20:34)
[2018-05-29] MEDS ORDERED: Nicardipine 20 MG/200 ML 20 MG/200 ML BAG IV PRN (21:29)
--- NOTE | 2018-05-29 22:31 | RAD ---
Date of service: 05/29/2018 HISTORY: medical clearance COMPARISON: 03/25/2018. FINDINGS: The right IJV line terminates at the cavoatrial junction. LUNGS: The lungs are well inflated and clear. PLEURA: No pleural effusions or pneumothorax. CARDIOVASCULAR: There is severe cardiomegaly. No aortic atherosclerotic calcifications present. OSSEOUS STRUCTURES: Within normal limits for the patient's age. VISUALIZED UPPER ABDOMEN: Normal. OTHER FINDINGS: None. IMPRESSION: No active pulmonary disease.
--- NOTE | 2018-05-29 22:43 | CP.PCM.CON ---
<Zaid Duncan - Last Filed: 05/29/18 22:16> History of Present Illness - History of Present Illness History of Present Illness: ICU Consultation (Dr. San's Service) CC: ICH HPI: Mr. 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 Patient reports that he was resting when this occurred and that it was self limited to approximately one hour. His fiance was at work, however, so he waited until she arrived home to go to the ED for evaluation. He also endorses a several day history of dry cough and generally not feeling well but denies any other symptoms associated with his presentation such as headache, LOC, changes in his vision/hearing/smell, neck pain/stiffness, chest pain, SOB, any new or worsening extremity weakness/numbness, bowel/bladder incontinence or any falls. While in the ED, a CT Head showed possible intracranial hemorrhage consistent with a SDH on the left side and ICU team was consulted for this reason. Patient currently denies any complaints and further 12 point ROS is unremarkable at this time outside of what has been previously mentioned in this note. PMH: As stated above PSH: Aneurysm repair (~20 years ago) Family History: Mother- from ruptured cerebral aneurysm Social History: Denies any tobacco, alcohol or illicit drug use; Lives at home with his fiance Allergies: NKDA Home Medications: Reviewed; As per MAR PMD: Dr. Walker Ibarra Neurologist: Dr. Arcadio Estrada Review of Systems - Review of Systems Review of Systems: As stated in HPI, otherwise negative Past Patient History - Infectious Disease Hx of Infectious Diseases: None - Tetanus Immunizations Tetanus Immunization: Unknown - Past Social History Smoking Status: Never Smoked - CARDIAC Hx Hypertension: Yes - PULMONARY Hx Respiratory Disorders: No - NEUROLOGICAL HX Cerebrovascular Accident: Yes (R sided sweakness) - HEENT Hx HEENT Problems: No - RENAL Hx Chronic Kidney Disease: No - ENDOCRINE/METABOLIC Hx Endocrine Disorders: No - HEMATOLOGICAL/ONCOLOGICAL Hx Blood Transfusions: No Hx Blood Transfusion Reaction: No - INTEGUMENTARY Hx Dermatological Problems: No - MUSCULOSKELETAL/RHEUMATOLOGICAL Hx Falls: No - GASTROINTESTINAL Hx Gastrointestinal Disorders: No - GENITOURINARY/GYNECOLOGICAL Hx Genitourinary Disorders: No - PSYCHIATRIC Hx Substance Use: No - SURGICAL HISTORY Hx Cardiac Catheterization: Yes (2012) - ANESTHESIA Hx Anesthesia: Yes Hx Anesthesia Reactions: No Hx Malignant Hyperthermia: No Meds Allergies/Adverse Reactions: Allergies Allergy/AdvReac Type Severity Reaction Status Date / Time No Known Allergies Allergy Verified 11/05/12 10:04 - Medications Medications: Current Medications Sodium Chloride (Sodium Chloride 0.9%) 1,000 mls @ 100 mls/hr IV .Q10H [facility] Last Admin: 05/29/18 18:54 Dose: 100 mls/hr Nicardipine HCl (Cardene Iv Premix) 20 mg in 200 mls @ 25 mls/hr IV .Q8H PRN; Protocol PRN Reason: TITRATE PER MD ORDER Levetiracetam (Keppra 500mg Ivpb) 500 mg in 100 mls @ 400 mls/hr IVPB Q12 [facility] Physical Exam - Constitutional Appears: Non-toxic, No Acute Distress - Head Exam Head Exam: ATRAUMATIC, NORMOCEPHALIC - Eye Exam Eye Exam: EOMI, Normal appearance, PERRL. absent: Conjunctival injection, Nystagmus, Periorbital swelling, Periorbital tenderness, Scleral icterus Pupil Exam: NORMAL ACCOMODATION, PERRL. absent: Fixed, Irregular, Miosis, Mydriatic, Unequal - ENT Exam ENT Exam: Mucous Membranes Moist - Neck Exam Neck exam: Positive for: Full Rom - Respiratory Exam Respiratory Exam: Clear to Auscultation Bilateral, NORMAL BREATHING PATTERN. absent: Accessory Muscle Use, Rales, Rhonchi, Wheezes, Respiratory Distress - Cardiovascular Exam Cardiovascular Exam: REGULAR RHYTHM, RRR, +S1, +S2 - GI/Abdominal Exam GI & Abdominal Exam: Normal Bowel Sounds, Soft. absent: Tenderness - Extremities Exam Extremities exam: Negative for: calf tenderness, pedal edema - Neurological Exam Neurological exam: Alert, CN II-XII Intact, Oriented x3 - Expanded Neurological Exam Expanded Patient oriented to: person, place, time Speech: Fluid Speech Cranial nerves: EOM's Intact: Normal, Facial Palsey w/Forehead Movement: Normal, Facial Palsey w/o Forehead Movement: Normal, Facial Sensation: Normal, Nystagmus: Normal, Tongue Deviation: Normal Cerebellar Function: Finger to Nose: Abnormal Right, Heel to Fu: Abnormal Right Upper motor neuron: Pronator Drift: Abnormal Right Sensory exam: Lower Extremity 2 Point Discrimination: Normal, Lower Extremity Light Touch: Normal, Upper Extremity 2 Point Discrimination: Normal, Upper Extremity Light Touch: Normal Neuro motor strength exam: Left Upper Extremity: 5, Right Upper Extremity: 3, Left Lower Extremity: 5, Right Lower Extremity: 4 Coma Scale Eye Opening: SPONTANEOUS Coma Scale Motor Response: OBEYS COMMANDS Coma Scale Verbal: Oriented Coma Scale Total: 15 Results - Vital Signs Recent Vital Signs: Last Vital Signs Temp 98.8 F 05/29/18 17:48 Pulse 64 05/29/18 21:06 Resp 18 05/29/18 21:06 BP 159/116 H 05/29/18 21:06 Pulse Ox 100 05/29/18 21:06 - Labs Result Diagrams: 05/29/18 18:15 05/29/18 18:15 Labs: Laboratory Results - last 24 hr 05/29/18 05/29/18 05/29/18 16:52 18:05 18:07 WBC RBC Hgb Hct MCV MCH MCHC RDW Plt Count MPV Neut % (Auto) Lymph % (Auto) Chase % (Auto) Eos % (Auto) Baso % (Auto) Lymph # (Auto) Chase # (Auto) Eos # (Auto) Baso # (Auto) Absolute Neuts (auto) PT INR APTT Sodium Potassium Chloride Carbon Dioxide Anion Gap BUN Creatinine Est GFR ( Amer) Est GFR (Non-Af Amer) POC Glucose (mg/dL) 80 Random Glucose Calcium Magnesium Total Bilirubin AST ALT Alkaline Phosphatase Troponin I Total Protein Albumin Globulin Albumin/Globulin Ratio Urine Color Yellow Urine Appearance Clear Urine pH 7.0 Ur Specific [place] 1.020 Urine Protein Negative Urine Glucose (UA) Negative Urine Ketones Negative Urine Blood Negative Urine Nitrate Negative Urine Bilirubin Negative Urine Urobilinogen 0.2 Ur Leukocyte Esterase Negative Influenza Typ A,B (EIA) Negative for flu a/b Blood Type Antibody Screen BBK History Checked 05/29/18 05/29/18 05/29/18 18:15 18:15 18:15 WBC 4.6 RBC 4.37 Hgb 11.9 L Hct 38.3 L MCV 87.6 MCH 27.2 MCHC 31.1 RDW 14.9 H Plt Count 188 MPV 10.8 Neut % (Auto) 54.9 Lymph % (Auto) 33.3 Chase % (Auto) 9.9 H Eos % (Auto) 1.5 Baso % (Auto) 0.4 Lymph # (Auto) 1.5 Chase # (Auto) 0.5 Eos # (Auto) 0.1 Baso # (Auto) 0.02 Absolute Neuts (auto) 2.54 PT 13.4 H INR 1.21 APTT 34.0 Sodium 141 Potassium 4.2 Chloride 108 H Carbon Dioxide 26 Anion Gap 11 BUN 20 Creatinine 1.3 Est GFR ( Amer) > 60 Est GFR (Non-Af Amer) 57 POC Glucose (mg/dL) Random Glucose 84 Calcium 9.7 Magnesium 2.0 Total Bilirubin 0.3 AST 24 ALT 19 Alkaline Phosphatase 45 Troponin I < 0.01 D Total Protein 7.3 Albumin 4.0 Globulin 3.3 Albumin/Globulin Ratio 1.2 Urine Color Urine Appearance Urine pH Ur Specific [place] Urine Protein Urine Glucose (UA) Urine Ketones Urine Blood Urine Nitrate Urine Bilirubin Urine Urobilinogen Ur Leukocyte Esterase Influenza Typ A,B (EIA) Blood Type Antibody Screen BBK History Checked 05/29/18 19:55 WBC RBC Hgb Hct MCV MCH MCHC RDW Plt Count MPV Neut % (Auto) Lymph % (Auto) Chase % (Auto) Eos % (Auto) Baso % (Auto) Lymph # (Auto) Chase # (Auto) Eos # (Auto) Baso # (Auto) Absolute Neuts (auto) PT INR APTT Sodium Potassium Chloride Carbon Dioxide Anion Gap BUN Creatinine Est GFR ( Amer) Est GFR (Non-Af Amer) POC Glucose (mg/dL) Random Glucose Calcium Magnesium Total Bilirubin AST ALT Alkaline Phosphatase Troponin I Total Protein Albumin Globulin Albumin/Globulin Ratio Urine Color Urine Appearance Urine pH Ur Specific [place] Urine Protein Urine Glucose (UA) Urine Ketones Urine Blood Urine Nitrate Urine Bilirubin Urine Urobilinogen Ur Leukocyte Esterase Influenza Typ A,B (EIA) Blood Type A POSITIVE Antibody Screen Negative BBK History Checked Patient has bt Assessment & Plan - Assessment and Plan (Free Text) Assessment: 57 year old male with a past medical history significant for 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 Plan: 1. Intracranial Hemorrhage -CT Head showed a 3.3 cm zone of mixed increased/decreased attenuation in the left internal capsule, putamen and thalamic nucleus compatible with intraparenchymal hemorrhage/edema and a thin left subdural hypodense collection compatible with subacute/chronic subdural hematoma -CTA Head/Neck performed and pending official radiologist interpretation -Repeat CT Head at 0800 tomorrow -Cardene Drip at 2.5mg/hr to maintain SBP around 140mmHg -Home Keppra converted to IVPB -B12/Folate levels pending -NPO Diet pending Swallow Evaluation -Neurochecks as ordered -Fall, Seizure and Aspiration Precautions -Neurology consulted (Dr. Baudilio Estrada); all recommendations appreciated -Neurosurgery consulted (Dr. Williamson); No acute intervention at this time and requests repeat CT head in the AM GI Prophylaxis: Protonix DVT Prophylaxis: SCD's Code Status: Full Code Disposition: Patient will be admitted to MICU for further evaluation and management of ICH. Patient seen and case discussed with attending, Dr. San. Zaid Duncan PGY2 - Date & Time Date: 05/29/18 Time: 22:16 <Luz San - Last Filed: 05/30/18 19:49> Meds - Medications Medications: Current Medications Amlodipine Besylate (Norvasc) 10 mg PO DAILY [facility] Last Admin: 05/30/18 09:38 Dose: 10 mg Atorvastatin Calcium (Lipitor) 40 mg PO DIN [facility] Last Admin: 05/30/18 17:00 Dose: 40 mg Carvedilol (Coreg) 6.25 mg PO BID [facility] Last Admin: 05/30/18 17:00 Dose: 6.25 mg Levetiracetam (Keppra 500mg Ivpb) 500 mg in 100 mls @ 400 mls/hr IVPB Q12 [facility] Last Admin: 05/30/18 09:35 Dose: 400 mls/hr Pantoprazole Sodium (Protonix Inj) 40 mg IVP DAILY [facility] Last Admin: 05/30/18 10:01 Dose: 40 mg Results - Vital Signs Recent Vital Signs: Last Vital Signs Temp 98.2 F 05/30/18 16:00 Pulse 67 05/30/18 18:40 Resp 22 05/30/18 18:40 BP 167/90 H 05/30/18 18:39 Pulse Ox 99 05/30/18 15:00 - Labs Result Diagrams: 05/30/18 05:00 05/30/18 05:00 Labs: Laboratory Results - last 24 hr 05/29/18 05/30/18 05/30/18 19:55 05:00 05:00 WBC 4.1 L RBC 4.38 Hgb 11.5 L Hct 38.2 L MCV 87.2 MCH 26.3 MCHC 30.1 L RDW 14.8 H Plt Count 175 MPV 11.2 H Neut % (Auto) 42.5 L Lymph % (Auto) 44.0 H Chase % (Auto) 10.8 H Eos % (Auto) 2.2 Baso % (Auto) 0.5 Lymph # (Auto) 1.8 Chase # (Auto) 0.4 Eos # (Auto) 0.1 Baso # (Auto) 0.02 Absolute Neuts (auto) 1.73 Sodium 141 Potassium 3.6 Chloride 106 Carbon Dioxide 28 Anion Gap 10 BUN 14 Creatinine 1.1 Est GFR ( Amer) > 60 Est GFR (Non-Af Amer) > 60 Random Glucose 84 Calcium 9.1 Total Bilirubin 0.3 AST 26 ALT 14 Alkaline Phosphatase 49 Total Protein 7.1 Albumin 3.5 Globulin 3.6 Albumin/Globulin Ratio 0.9 L Vitamin B12 344 Folate > 20.0 Blood Type A POSITIVE Antibody Screen Negative BBK History Checked Patient has bt Attending/Attestation - Attestation I have personally seen and examined this patient.: Yes I have fully participated in the care of the patient.: Yes I have reviewed all pertinent clinical information: Yes Notes (Text): 05/30/18 19:48 seen and examined. discussed with resident. A & P as above.
[2018-05-30] MEDS: Sodium Chloride 0.9% 1,000 ML IV SCH ×2 (00:40→04:51)
[2018-05-30] MEDS: levETIRAcetam 500mg IVPB 500 MG/100 ML BAG IVPB SCH ×3 (00:40→21:49)
--- NOTE | 2018-05-30 02:18 | HP ---
DATE OF EXAM: 05/29/2018 The patient is a 57-year-old male. The patient was seen and examined at the bedside on 05/29/2018. CHIEF COMPLAINT: Change in speech and weakness. HISTORY OF PRESENT ILLNESS: Mr. Lara is a 57-year-old male with past medical history of CVA with residual mild dysarthria. Upper and lower extremity weakness, history of 2 ruptured cerebral aneurysms status post repair at the age of 23 and 34 as per the patient. Severely impaired systolic function, latest ejection fraction is 35%, hypertension, hypercholesterolemia came with increased dysarthria that started approximately today. The patient reports that , when this happened and it was self-remitted approximately 1 hour. His fiancee was at work. However, so he waited until she came back home. She brought the patient to emergency room. He has endorses a severe lengthy history of dry coughing and generalized weakness. No headache. No loss of consciousness. No vision changing, no hearing changes, no chest pain. CT scan of the head done in the emergency room shows intracranial hemorrhage consistent with SDH on the left side and ICU team was consulted and the accepted the patient. Now the patient is transferred to ICU. PAST MEDICAL HISTORY: As above, history of aneurysm repair 20 years ago. FAMILY HISTORY: Father and mother, noncontributory. HABITS: No smoking. No drugs. No ethanol. ALLERGIES: THE PATIENT IS NOT ALLERGIC WITH ANY MEDICATIONS. HOME MEDICATIONS: Reviewed by me. REVIEW OF SYSTEMS: The patient was seen and examined at the bedside in the emergency room. No fever, no chills, no hematuria, no headache, no dizziness, no chest pain, and no palpitation. PHYSICAL EXAMINATION: VITAL SIGNS: Temperature 98.6, pulse 54, blood pressure 150/115, and respiratory rate 20. HEENT: Head is normocephalic and atraumatic. Eyes; PERRLA, extraocular muscles intact, conjunctivae clear. Nose patent. Mucous membranes moist. NECK: Supple. No carotid bruit. No thyromegaly. CHEST: Bilaterally symmetrical. HEART: S1 and S2 positive. LUNGS: Clear to auscultation. ABDOMEN: Soft. Bowel sounds present. No organomegaly. EXTREMITIES: No edema. No cyanosis. NEUROLOGIC: The patient is awake and alert. Follow simple commands. LABORATORY DATA: White blood cell is 4.6, hemoglobin 11.9, hematocrit 38.3, and platelets 188. Sodium 141, potassium 4.2, BUN 20, creatinine 1.3, and glucose 84. Troponin less than 0.01. ASSESSMENT AND PLAN: Mr. Arcenio Lara is a 57-year-old male with anemia, hyperchloremia, negative Influenza type A and B, came with weakness. CAT scan of the head was done, results are pending. Chest x-ray is done, results are pending. Seen by neurologist. The patient had past medical history of cerebrovascular accident with residual mild dysarthria and right upper and lower extremity weakness, 2 ruptured cerebral aneurysm status post repair at age of 23 and 34. History of ventriculoperitoneal shunt, severely impaired systolic function, hypertension, hypercholesterolia. Never smoked, no drinking, no ethanol. Neurologist as outpatient. Admitted in the ICU. Started nicardipine, Keppra, normal saline. CAT scan shows intracranial bleeding. Looks like intraparenchymal hemorrhage/edema and cranial left subdural hypodense collection of compatibly subacute/chronic subdural hematoma. CT of the head and neck performed and pending official results for interpretation. Repeat CAT scan of the head tomorrow. Cardene drip started. Home Keppra converted to IVP. Vitamins pending n.p.o. after midnight. Do swallow evaluations. Neuro check ordered. Fall precautions. Neurologist is on the case. Neurosurgeon, Dr. Williamson is on the case also. Discussion done with ER physician. Repeat labs. We will follow up. Norma Robledo MD JUDITH
[2018-05-30 05:59] LABS: ALB/GLOB RATIO 0.9 (1.1-1.8); ALBUMIN 3.5 g/dL (3.0-4.8); ALT/SGPT 14 U/L (7-56); AST/SGOT 26 U/L (17-59); BLOOD UREA NITROGEN 14 mg/dL (7-21); CALCIUM 9.1 mg/dL (8.4-10.5); GFR NON-AFRICAN AMERICAN > 60
[2018-05-30 06:22] LABS: BASO # 0.02 K/mm3 (0.0-2.0); BASO % 0.5 % (0.0-3.0); EOS # 0.1 (0.0-0.7); EOS % 2.2 % (1.5-5.0); HEMOGLOBIN 11.5 g/dL (14.0-18.0); LYMPH # 1.8 (1.2-3.4); MEAN CELL VOLUME 87.2 fl (80.0-105.0); MEAN CORPUSCULAR HEMOGLOBIN 26.3 pg (25.0-35.0); MEAN CORPUSCULAR HGB CONC 30.1 g/dl (31.0-37.0); MEAN PLATELET VOLUME 11.2 fl (7.0-11.0); MONO # 0.4 (0.1-0.6); MONO % 10.8 % (1.0-6.0); RBC 4.38 10^6/uL (3.5-6.1); RED CELL DISTRIBUTION WIDTH 14.8 % (11.5-14.5); WHITE BLOOD COUNT 4.1 10^3/uL (4.5-11.0)
--- NOTE | 2018-05-30 08:23 | CP.PCM.PN ---
Subjective - Date & Time of Evaluation Date of Evaluation: 05/30/18 Time of Evaluation: 08:19 - Subjective Subjective: by history and review of his old films that are on line he has an AVM Left deep thalamic area there is evedence of prior rupture/caclifications within it Unclear if there was some embolization proceedure done in past there is no eveidence on the latest study that there is acute hemmorhage At this time there is no acute surgical intervention indicated Suggest he return the neurosurgeon who has been following him for better evaluation of this. Objective - Vital Signs/Intake and Output Vital Signs (last 24 hours): Temp Pulse Resp BP Pulse Ox 98.6 F 56 L 16 171/92 H 100 05/29/18 22:16 05/30/18 04:45 05/30/18 04:45 05/30/18 04:45 05/30/18 04:45 Intake and Output: 05/30/18 05/30/18 06:59 18:59 Intake Total 820 Output Total 1520 Balance -700 - Medications Medications: Current Medications Sodium Chloride (Sodium Chloride 0.9%) 1,000 mls @ 100 mls/hr IV .Q10H [facility] Last Admin: 05/30/18 04:51 Dose: Not Given Nicardipine HCl (Cardene Iv Premix) 20 mg in 200 mls @ 25 mls/hr IV .Q8H PRN; Protocol PRN Reason: TITRATE PER MD ORDER Levetiracetam (Keppra 500mg Ivpb) 500 mg in 100 mls @ 400 mls/hr IVPB Q12 [facility] Last Admin: 05/30/18 00:40 Dose: 400 mls/hr Pantoprazole Sodium (Protonix Inj) 40 mg IVP DAILY [facility] - Labs Labs: 05/30/18 05:00 05/30/18 05:00 PT 13.4 SECONDS (9.4-12.5) H 05/29/18 18:15 INR 1.21 05/29/18 18:15 APTT 34.0 Seconds (26.9-38.3) 05/29/18 18:15
--- NOTE | 2018-05-30 08:29 | CT ---
Date of service: 05/29/2018 PROCEDURE: CT HEAD WITHOUT CONTRAST. HISTORY: transient episode of slurred speech, resolved, COMPARISON: CT head without contrast from 03/25/2018 and MRI brain without contrast from 07/17/2017 TECHNIQUE: Axial computed tomography images were obtained through the head/brain without intravenous contrast. Radiation dose: Total exam DLP = 1079.88 mGy-cm. This CT exam was performed using one or more of the following dose reduction techniques: Automated exposure control, adjustment of the mA and/or kV according to patient size, and/or use of iterative reconstruction technique. FINDINGS: HEMORRHAGE: No intracranial hemorrhage. BRAIN: There is redemonstration of a 3.3 x 3.5 cm known mixed density lesion with central speck of calcification in the left thalamus. There are mild chronic microangiopathic changes. There is no extra-axial fluid collection. VENTRICLES: Right-sided trans parietal shunt catheter terminates in the atrium of the right lateral ventricle. There is mild ex vacuo dilatation of the atrium of the left lateral ventricle. CALVARIUM: There is no calvarial fracture or extracranial soft tissue swelling. PARANASAL SINUSES: Predominantly clear. MASTOID AIR CELLS: Predominantly clear. OTHER FINDINGS: None. IMPRESSION: 1. No acute intracranial abnormality. 2. 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 3. Stable position of right trans parietal shunt catheter terminating in the atrium of the right lateral ventricle. A preliminary report was provided by [employer]. The final report this agrees with the preliminary findings of intraparenchymal hemorrhage. The mixed density lesion is in known AV malformation. The final report is tagged to the PA review folder.
--- NOTE | 2018-05-30 11:17 | CT ---
Date of service: 05/29/2018 PROCEDURE: CTA HEAD AND NECK WITH CONTRAST HISTORY: Stroke COMPARISON: None available. TECHNIQUE: Initial noncontrast head CT was performed. Subsequently, CT angiogram of the head and neck were performed after the intravenous administration of 80 mL of Omnipaque 350. Contiguous 1.5mm thick images were obtained in the axial plane of the neck. 2-D coronal and sagittal MPR images were obtained. Imaging postprocessing was performed with 3-D images also obtained. A delayed contrast head CT was also obtained. This CT exam was performed using one or more of the following dose reduction techniques: Automated exposure control, adjustment of the mA and/or kV according to patient size, and/or use of iterative reconstruction technique. Contrast dose: 100 mL Omnipaque 350 Radiation dose: Total exam DLP = 645.94 mGy-cm. FINDINGS: HEAD: Right: The intracranial internal carotid artery, and anterior and middle cerebral arteries are widely patent. Left: The intracranial internal carotid artery, and anterior and middle cerebral arteries are widely patent. Posterior circulation: The visualized intracranial vertebral arteries, basilar artery and posterior cerebral arteries are widely patent. There is no endoluminal filling defect to suggest thrombus. There is no intracranial saccular aneurysm. NECK: There is a three vessel aortic arch. There is no stenosis at the origins of the great vessels at the level of the aortic arch. No atherosclerotic calcification or mural plaque present. Right Carotid: On the right, the common carotid, internal carotid and external carotid arteries are widely patent. There is no hemodynamically significant stenosis in the internal carotid artery by NASCET criteria. Left Carotid: On the left, the common carotid, internal carotid and external carotid arteries are widely patent. There is no hemodynamically significant stenosis in the internal carotid artery by NASCET criteria. The vertebral arteries are widely patent. The vertebral artery is hypoplastic, an anatomic variant. The visualized soft tissues of the neck are normal. The visualized cervical spine is within normal limits. The lung apices are clear. IMPRESSION: 1. No evidence of endoluminal thrombus,occlusion or definite significant stenosis in the intracranial arteries. 2. No evidence of hemodynamically significant stenosis in the internal carotid arteries. 3. Patent bilateral vertebral arteries. A preliminary report was provided by [employer].
--- NOTE | 2018-05-30 11:29 | CT ---
Date of service: 05/30/2018 PROCEDURE: CT HEAD WITHOUT CONTRAST. HISTORY: ICH COMPARISON: CT head without contrast from 05/29/2018 TECHNIQUE: Axial computed tomography images were obtained through the head/brain without intravenous contrast. Radiation dose: Total exam DLP = 903.34 mGy-cm. This CT exam was performed using one or more of the following dose reduction techniques: Automated exposure control, adjustment of the mA and/or kV according to patient size, and/or use of iterative reconstruction technique. FINDINGS: HEMORRHAGE: No intracranial hemorrhage. BRAIN: There is redemonstration of an ill-defined mixed density lesion with central speck of calcification in the left thalamus not significantly changed in size and appearance since the prior examination. There is no mass effect or abnormal extra-axial fluid collection. The midline sagittal structures are normal. VENTRICLES: Right-sided trans parietal shunt catheter terminates in the right lateral ventricle. No hydrocephalus. CALVARIUM: There is no calvarial fracture or extracranial soft tissue swelling. PARANASAL SINUSES: Predominantly clear. MASTOID AIR CELLS: Predominantly clear. OTHER FINDINGS: None. IMPRESSION: No significant interval change. No acute findings. Redemonstration of known AV malformation in the left thalamus. An MRI of the brain without and with intravenous contrast is recommended for reassessment in the setting of stroke.
[2018-05-30 12:51] LABS: FOLATE > 20.0 ng/mL
--- NOTE | 2018-05-30 14:07 | PN ---
DATE: 05/30/2018 FINE UNHAIRER NOTE SUBJECTIVE: The patient is awake and alert. States that he feels much better today. He also states that he feels that his slurred speech has improved back to baseline. He has no complaints of chest pain. No shortness of breath, cough, wheezing, chest congestion. No fever, chills, nausea or vomiting. PHYSICAL EXAMINATION: VITAL SIGNS: Temperature is 98.6, pulse is 56, respirations of 16 and BP is 171/92. SKIN: Warm and dry. HEAD: Atraumatic. Normocephalic. EYES: Reactive to light. ENT: Ear, nose and throat seemed to be within normal limits. NECK: Supple. No JVD. No thyroid enlargement. No lymph nodes. HEART: Regular rate and rhythm. Normal S1, S2. LUNGS: Good breath sounds bilaterally. ABDOMEN: Soft, nontender. Normal bowel sounds. GENITALIA: Deferred. RECTAL: Deferred. MUSCULOSKELETAL: No joint deformities. EXTREMITIES: Trace lower extremity edema. NEUROLOGIC: The patient continues to have very slight baseline dysarthria and some mild weakness in the right upper and lower extremities. LABORATORY DATA: White count is 4.1, hemoglobin is 11.5, hematocrit 38.2 with platelets of 175,000. Sodium is 141, potassium 3.6, chloride 106, CO2 of 28 with a BUN of 14, creatinine of 1.1 and a glucose of 84. IMPRESSION: The patient presents with increased dysarthria, rule out acute intracerebral hemorrhage and brain aneurysm. The patient has history of intracerebral his hemorrhage and aneurysm clippings x2. Has a history of CVA and a PHYSICIAN PRACTICE ADMINISTRATOR shunt. Also carries a diagnosis of heart failure with an ejection fraction of 35%, hypertension and hyperlipidemia. PLAN: As far as our plan, we will continue to monitor closely neurologically, we will follow with the neurologist. The patient is pending final reading of a head CT angio. The patient is on Keppra as well as Cardene, Protonix and normal saline IV solution. We will continue to treat aggressively along with the other consultants and the primary care doctor. Austin Ayoub MD
--- NOTE | 2018-05-30 17:07 | CARD ---
APPROVED REPORT Date of service: 05/29/2018 EKG Measurement Heart [id number] <Conclusion> Normal sinus rhythm Voltage criteria for left ventricular hypertrophy T wave abnormality, consider inferolateral ischemia Abnormal ECG
--- NOTE | 2018-05-30 22:35 | CON ---
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 Williamson also saw the patient and does not recommend any intervention at the present time. PAST MEDICAL HISTORY: As above. SOCIAL HISTORY: He does not smoke. Does not drink. Denies any weakness. Workup in progress and the patient was seen by Dr. Harding, which does not want to do any intervention and CAT scan of the head was done, left thalamic AV malformation noted. Continue present management and we will followup. Shaquille Estrada MD
--- NOTE | 2018-05-30 22:46 | CON ---
DATE: 05/30/2018 HISTORY OF PRESENT ILLNESS: This is a 57-year-old male with a past medical history of CVA with residual weakness of the right upper and lower extremities. Also history of ruptured cerebral aneurysm status post repair at the age of 23 and 34. Patient is here with his . was at work when his symptoms came, who brought the patient to the emergency room with generalized weakness. A CT scan of the head was done, showed left thalamic AV malformation. Neurosurgeon Dr. Harding called to evaluate the patient. PAST MEDICAL HISTORY: As above. Status post aneurysm repair 20 years ago. ALLERGY: NOT ALLERGIC TO ANY MEDICATION. PHYSICAL EXAMINATION GENERAL: Patient is sitting comfortably. at bedside. Follows simple commands. Alert, awake and orientated to self and place. NEUROLOGIC: Cranial nerve II to XII were tested. Pupils reactive. EOM intact. Visual hardwick full. Mild facial residual asymmetry of the right face and also right-sided residual weakness from the previous aneurysm. IMPRESSION: Status post ventriculoperitoneal shunt. Patient on Keppra. PLAN: Continue present management. Repeat CT scan of the head showed the left thalamic AV malformation. Neurosurgeon on the case. We will follow up. Shaquille Estrada MD
[2018-05-31 06:35] LABS: BASO # 0.02 K/mm3 (0.0-2.0); BASO % 0.5 % (0.0-3.0); EOS # 0.1 (0.0-0.7); EOS % 2.8 % (1.5-5.0); HEMOGLOBIN 12.3 g/dL (14.0-18.0); LYMPH # 1.3 (1.2-3.4); MEAN CELL VOLUME 86.7 fl (80.0-105.0); MEAN CORPUSCULAR HEMOGLOBIN 26.4 pg (25.0-35.0); MEAN CORPUSCULAR HGB CONC 30.4 g/dl (31.0-37.0); MEAN PLATELET VOLUME 10.9 fl (7.0-11.0); MONO # 0.4 (0.1-0.6); MONO % 10.7 % (1.0-6.0); RBC 4.66 10^6/uL (3.5-6.1); RED CELL DISTRIBUTION WIDTH 14.8 % (11.5-14.5); WHITE BLOOD COUNT 3.9 10^3/uL (4.5-11.0)
[2018-05-31 07:05] LABS: ALB/GLOB RATIO 1.1 (1.1-1.8); ALBUMIN 3.9 g/dL (3.0-4.8); ALT/SGPT 9 U/L (7-56); AST/SGOT 23 U/L (17-59); BLOOD UREA NITROGEN 15 mg/dL (7-21); CALCIUM 9.5 mg/dL (8.4-10.5); GFR NON-AFRICAN AMERICAN > 60
[2018-05-31] MEDS: levETIRAcetam 500mg IVPB 500 MG/100 ML BAG IVPB SCH ×2 (09:07→21:34)
--- NOTE | 2018-05-31 10:04 | CP.CCUPN ---
<Korey Canchola - Last Filed: 05/31/18 10:18> CCU Subjective - Physician Review Events Since Last Encounter (Free Text): 05/31/18 09:57 pt OOB to chair, tolerating breakfast Subjective (Free Text): 05/31/18 09:58 Pt seen and examined this morning in the ICU. Pt sitting in chair, asking if he can go home CCU Objective - Vital Signs / Intake & Output Vital Signs (Last 4 hours): Vital Signs Pulse Resp BP Pulse Ox 05/31/18 09:08 65 158/82 H 05/31/18 08:00 64 05/31/18 07:40 64 16 99 05/31/18 07:30 58 L 12 98 05/31/18 07:20 64 18 98 05/31/18 07:10 60 18 100 05/31/18 07:01 65 15 149/93 H 100 05/31/18 07:00 57 L 14 100 05/31/18 06:55 59 L 17 152/79 H 05/31/18 06:50 60 14 05/31/18 06:48 59 L 13 05/31/18 06:00 158/105 H Intake and Output (Last 8hrs): Intake & Output 05/30/18 05/31/18 05/31/18 22:59 06:59 14:59 Intake Total 880 480 Output Total 1000 1250 Balance -120 -770 Intake: IV 400 Left Antecubital 400 Oral 480 480 Output: Urine 1000 1250 Urine, Voided 1000 1250 Other: # Voids Urine, Voided 6 6 # Bowel Movements 1 - Physical Exam Head: Positive for: Atraumatic, Normocephalic Pupils: Positive for: PERRL Extroacular Muscles: Positive for: EOMI Conjunctiva: Positive for: Normal Ears: Positive for: NORMAL TM, Normal Canal. Negative for: Erythema Mouth: Positive for: Moist Mucous Membranes Pharnyx: Positive for: Normal. Negative for: ERYTHEMA, EXUDATE, TONSILS ENLARGED Nose (External): Positive for: Atraumatic. Negative for: Abrasion, Contusion, Laceration Nose (Internal): Positive for: Normal Inspection, No Active Bleeding. Negative for: Rhinorrhea, Septal Hematoma, Epistaxis Neck: Positive for: Normal Range of Motion, Trachea Midline. Negative for: Meningeal Signs, MIDLINE TENDERNESS, Lymphadenopathy Respiratory/Chest: Positive for: Clear to Auscultation, Good Air Exchange. Negative for: Respiratory Distress, Accessory Muscle Use Cardiovascular: Positive for: Regular Rate and Rhythm, Normal S1, S2. Negative for: Murmurs Abdomen: Negative for: Tenderness, Distention, Peritoneal Signs, Rebound, Guarding Back: Positive for: Normal Inspection Upper Extremity: Positive for: Normal Inspection, Other (Rt. bicep atrophy). Negative for: Cyanosis, Edema, Tenderness, Swelling Lower Extremity: Positive for: Normal Inspection. Negative for: Edema Neurological: Positive for: GCS=15, CN II-XII Intact, Memory Normal, Other (Ple ase see my NIHSS score. Rt. pronator drift noted. RUE and RLE motor 2/5). Negative for: Speech Normal (dysarthria) Skin: Positive for: Warm, Dry, Normal Color. Negative for: Rashes Psychiatric: Positive for: Alert, Oriented x 3, Normal Insight, Normal Concentration - Medications Active Medications: Active Medications Generic Name Dose Route Start Last Admin Trade Name Carlosq PRN Reason Stop Dose Admin Amlodipine Besylate 10 mg 05/30/18 10:00 05/31/18 09:08 Norvasc PO 10 mg DAILY DAMARI Administration Atorvastatin Calcium 40 mg 05/30/18 17:00 05/30/18 17:00 Lipitor PO 40 mg DIN DAMARI Administration Carvedilol 6.25 mg 05/30/18 10:00 05/31/18 09:08 Coreg PO 6.25 mg BID DAMARI Administration Levetiracetam 500 mg in 100 mls @ 400 mls/hr 05/29/18 22:00 05/31/18 09:07 Keppra 500mg Ivpb IVPB 400 mls/hr Q12 DAMARI Administration Pantoprazole Sodium 40 mg 05/30/18 10:00 05/31/18 09:08 Protonix Inj IVP 40 mg DAILY DAMARI Administration - Patient Studies Lab Studies: Lab Studies 05/31/18 05/31/18 05/30/18 Range/Units 06:00 06:00 05:00 WBC 3.9 L (4.5-11.0) 10^3/uL RBC 4.66 (3.5-6.1) 10^6/uL Hgb 12.3 L (14.0-18.0) g/dL Hct 40.4 L (42.0-52.0) % MCV 86.7 (80.0-105.0) fl MCH 26.4 (25.0-35.0) pg MCHC 30.4 L (31.0-37.0) g/dl RDW 14.8 H (11.5-14.5) % Plt Count 180 (120.0-450.0) 10^3/uL MPV 10.9 (7.0-11.0) fl Neut % (Auto) 53.0 (50.0-68.0) % Lymph % (Auto) 33.0 (22.0-35.0) % Sterling % (Auto) 10.7 H (1.0-6.0) % Eos % (Auto) 2.8 (1.5-5.0) % Baso % (Auto) 0.5 (0.0-3.0) % Lymph # (Auto) 1.3 (1.2-3.4) Sterling # (Auto) 0.4 (0.1-0.6) Eos # (Auto) 0.1 (0.0-0.7) Baso # (Auto) 0.02 (0.0-2.0) K/mm3 Absolute Neuts (auto) 2.09 (1.4-6.5) Sodium 141 (132-148) mmol/L Potassium 3.6 (3.6-5.0) mmol/L Chloride 108 H (98-107) mmol/L Carbon Dioxide 27 (21-33) mmol/L Anion Gap 10 (10-20) BUN 15 (7-21) mg/dL Creatinine 1.1 (0.8-1.5) mg/dl Est GFR ( Amer) > 60 Est GFR (Non-Af Amer) > 60 Random Glucose 95 (70-110) mg/dL Calcium 9.5 (8.4-10.5) mg/dL Phosphorus 3.6 (2.5-4.5) mg/dL Magnesium 2.0 (1.7-2.2) mg/dL Total Bilirubin 0.2 (0.2-1.3) mg/dL AST 23 (17-59) U/L ALT 9 (7-56) U/L Alkaline Phosphatase 52 (38-126) U/L Total Protein 7.5 (5.8-8.3) g/dL Albumin 3.9 (3.0-4.8) g/dL Globulin 3.6 gm/dL Albumin/Globulin Ratio 1.1 (1.1-1.8) Vitamin B12 344 (239-931) pg/mL Folate > 20.0 ng/mL Laboratory Results - last 24 hr 05/30/18 05/31/18 05/31/18 05:00 06:00 06:00 WBC 3.9 L RBC 4.66 Hgb 12.3 L Hct 40.4 L MCV 86.7 MCH 26.4 MCHC 30.4 L RDW 14.8 H Plt Count 180 MPV 10.9 Neut % (Auto) 53.0 Lymph % (Auto) 33.0 Sterling % (Auto) 10.7 H Eos % (Auto) 2.8 Baso % (Auto) 0.5 Lymph # (Auto) 1.3 Sterling # (Auto) 0.4 Eos # (Auto) 0.1 Baso # (Auto) 0.02 Absolute Neuts (auto) 2.09 Sodium 141 Potassium 3.6 Chloride 108 H Carbon Dioxide 27 Anion Gap 10 BUN 15 Creatinine 1.1 Est GFR ( Amer) > 60 Est GFR (Non-Af Amer) > 60 Random Glucose 95 Calcium 9.5 Phosphorus 3.6 Magnesium 2.0 Total Bilirubin 0.2 AST 23 ALT 9 Alkaline Phosphatase 52 Total Protein 7.5 Albumin 3.9 Globulin 3.6 Albumin/Globulin Ratio 1.1 Vitamin B12 344 Folate > 20.0 Radiology Impressions: Radiology Impressions Head/Neck CTA 05/29/18 19:58 IMPRESSION: 1. No evidence of endoluminal thrombus,occlusion or definite significant stenosis in the intracranial arteries. 2. No evidence of hemodynamically significant stenosis in the internal carotid arteries. 3. Patent bilateral vertebral arteries. A preliminary report was provided by [employer]. Head CT 05/30/18 08:00 IMPRESSION: No significant interval change. No acute findings. Redemonstration of known AV malformation in the left thalamus. An MRI of the brain without and with intravenous contrast is recommended for reassessment in the setting of stroke. Fingerstick Blood Sugar Results: 80 Critical Care Progress Note - Nutrition Nutrition: Nutrition Category Date Time Status Heart Healthy Diet [DIET] Diets 05/30/18 Breakfast Active Assessment/Plan - Assessment and Plan (Free Text) Assessment: Pt is a 57 yo male with a PMH of CVA, RUE/RLE weakness, two ruptured cerebral aneurysms, SOCIAL WORK MANAGER shunt, HTN, HLD, and an EF of 35% who presented to the ED complaining of trouble speaking and also weakness of the RUE and RLE. Plan: Neuro - CVA with residual weakness, hx of ruptured cerebral aneurysms, SOCIAL WORK MANAGER shunt, - continue to monitor mental status - kepra - Head CT: no acute intracranial abnormality. left thalamic arterial venous malformation. SOCIAL WORK MANAGER shunt is stable and in place in the atrium of the right lateral ventricle - Head CTA: no evidence of endoluminal thrombus, occlusion or stenosis of intracranial arteries. - Neuro consulted, Dr Castro - Neuro surg consulted, Dr Williamson Cardio - HTN, HLD, EF 35% - maintain MAP above 65 - amlodipine - lipitor - carvedilol - Cardio consulted, Dr West Pulm - Maintain SpO2 >92% - Pulm consulted, Dr Lemons GI - AST/ALT - pantoprazole - HHD /Nephro - BUN 15 - Cr 1.1 Endo - Maintain euglycemia Heme/Onc - H/H stable - Hgb 12.3 - INR 1.21 - SCDs ID - no leukocytosis - afebrile, no tachycardia Dispo: transfer pt out of ICU to tele today Pt seen, examined, assessment and plan discussed with Dr Katarzyna Canchola PGY1 - Date & Time Date: 05/31/18 Time: 07:30 <oRdolfo Colón - Last Filed: 05/31/18 11:27> CCU Objective - Vital Signs / Intake & Output Vital Signs (Last 4 hours): Vital Signs Pulse Resp BP Pulse Ox 05/31/18 09:08 65 158/82 H 05/31/18 08:00 64 05/31/18 07:40 64 16 99 05/31/18 07:30 58 L 12 98 Intake and Output (Last 8hrs): Intake & Output 05/30/18 05/31/18 05/31/18 22:59 06:59 14:59 Intake Total 880 480 Output Total 1000 1250 Balance -120 -770 Intake: IV 400 Left Antecubital 400 Oral 480 480 Output: Urine 1000 1250 Urine, Voided 1000 1250 Other: # Voids Urine, Voided 6 6 # Bowel Movements 1 - Medications Active Medications: Active Medications Generic Name Dose Route Start Last Admin Trade Name Enid PRN Reason Stop Dose Admin Amlodipine Besylate 10 mg 05/30/18 10:00 05/31/18 09:08 Norvasc PO 10 mg DAILY DAMARI Administration Atorvastatin Calcium 40 mg 05/30/18 17:00 05/30/18 17:00 Lipitor PO 40 mg DIN DAMARI Administration Carvedilol 6.25 mg 05/30/18 10:00 05/31/18 09:08 Coreg PO 6.25 mg BID DAMARI Administration Levetiracetam 500 mg in 100 mls @ 400 mls/hr 05/29/18 22:00 05/31/18 09:07 Keppra 500mg Ivpb IVPB 400 mls/hr Q12 DAMARI Administration Pantoprazole Sodium 40 mg 05/30/18 10:00 05/31/18 09:08 Protonix Inj IVP 40 mg DAILY DAMARI Administration - Patient Studies Lab Studies: Microbiology Studies 05/29/18 21:50 MRSA Culture (Admit) - Final Nose MRSA NOT DETECTED Lab Studies 05/31/18 05/31/18 05/31/18 Range/Units 10:50 06:00 06:00 WBC (4.5-11.0) 10^3/uL RBC (3.5-6.1) 10^6/uL Hgb (14.0-18.0) g/dL Hct (42.0-52.0) % MCV (80.0-105.0) fl MCH (25.0-35.0) pg MCHC (31.0-37.0) g/dl RDW (11.5-14.5) % Plt Count (120.0-450.0) 10^3/uL MPV (7.0-11.0) fl Neut % (Auto) (50.0-68.0) % Lymph % (Auto) (22.0-35.0) % Sterling % (Auto) (1.0-6.0) % Eos % (Auto) (1.5-5.0) % Baso % (Auto) (0.0-3.0) % Lymph # (Auto) (1.2-3.4) Sterling # (Auto) (0.1-0.6) Eos # (Auto) (0.0-0.7) Baso # (Auto) (0.0-2.0) K/mm3 Absolute Neuts (auto) (1.4-6.5) Sodium 141 (132-148) mmol/L Potassium 3.6 (3.6-5.0) mmol/L Chloride 108 H (98-107) mmol/L Carbon Dioxide 27 (21-33) mmol/L Anion Gap 10 (10-20) BUN 15 (7-21) mg/dL Creatinine 1.1 (0.8-1.5) mg/dl Est GFR ( Amer) > 60 Est GFR (Non-Af Amer) > 60 Random Glucose 95 (70-110) mg/dL Calcium 9.5 (8.4-10.5) mg/dL Phosphorus 3.6 (2.5-4.5) mg/dL Magnesium 2.0 (1.7-2.2) mg/dL Iron 37 L (45-180) ug/dL TIBC 263 (261-462) ug/dL % Saturation 14 L (20-55) % Total Bilirubin 0.2 (0.2-1.3) mg/dL AST 23 (17-59) U/L ALT 9 (7-56) U/L Alkaline Phosphatase 52 (38-126) U/L Total Protein 7.5 (5.8-8.3) g/dL Albumin 3.9 (3.0-4.8) g/dL Globulin 3.6 gm/dL Albumin/Globulin Ratio 1.1 (1.1-1.8) Triglycerides 207 H (35-160) mg/dL Cholesterol 162 (130-200) mg/dL LDL Cholesterol Direct 85 (0-129) mg/dL HDL Cholesterol 31 (29-60) mg/dL Vitamin B12 (239-931) pg/mL Folate ng/mL 05/31/18 05/30/18 Range/Units 06:00 05:00 WBC 3.9 L (4.5-11.0) 10^3/uL RBC 4.66 (3.5-6.1) 10^6/uL Hgb 12.3 L (14.0-18.0) g/dL Hct 40.4 L (42.0-52.0) % MCV 86.7 (80.0-105.0) fl MCH 26.4 (25.0-35.0) pg MCHC 30.4 L (31.0-37.0) g/dl RDW 14.8 H (11.5-14.5) % Plt Count 180 (120.0-450.0) 10^3/uL MPV 10.9 (7.0-11.0) fl Neut % (Auto) 53.0 (50.0-68.0) % Lymph % (Auto) 33.0 (22.0-35.0) % Sterling % (Auto) 10.7 H (1.0-6.0) % Eos % (Auto) 2.8 (1.5-5.0) % Baso % (Auto) 0.5 (0.0-3.0) % Lymph # (Auto) 1.3 (1.2-3.4) Sterling # (Auto) 0.4 (0.1-0.6) Eos # (Auto) 0.1 (0.0-0.7) Baso # (Auto) 0.02 (0.0-2.0) K/mm3 Absolute Neuts (auto) 2.09 (1.4-6.5) Sodium (132-148) mmol/L Potassium (3.6-5.0) mmol/L Chloride (98-107) mmol/L Carbon Dioxide (21-33) mmol/L Anion Gap (10-20) BUN (7-21) mg/dL Creatinine (0.8-1.5) mg/dl Est GFR ( Amer) Est GFR (Non-Af Amer) Random Glucose (70-110) mg/dL Calcium (8.4-10.5) mg/dL Phosphorus (2.5-4.5) mg/dL Magnesium (1.7-2.2) mg/dL Iron (45-180) ug/dL TIBC (261-462) ug/dL % Saturation (20-55) % Total Bilirubin (0.2-1.3) mg/dL AST (17-59) U/L ALT (7-56) U/L Alkaline Phosphatase (38-126) U/L Total Protein (5.8-8.3) g/dL Albumin (3.0-4.8) g/dL Globulin gm/dL Albumin/Globulin Ratio (1.1-1.8) Triglycerides (35-160) mg/dL Cholesterol (130-200) mg/dL LDL Cholesterol Direct (0-129) mg/dL HDL Cholesterol (29-60) mg/dL Vitamin B12 344 (239-931) pg/mL Folate > 20.0 ng/mL Laboratory Results - last 24 hr 05/30/18 05/31/18 05/31/18 05:00 06:00 06:00 WBC 3.9 L RBC 4.66 Hgb 12.3 L Hct 40.4 L MCV 86.7 MCH 26.4 MCHC 30.4 L RDW 14.8 H Plt Count 180 MPV 10.9 Neut % (Auto) 53.0 Lymph % (Auto) 33.0 Sterling % (Auto) 10.7 H Eos % (Auto) 2.8 Baso % (Auto) 0.5 Lymph # (Auto) 1.3 Sterling # (Auto) 0.4 Eos # (Auto) 0.1 Baso # (Auto) 0.02 Absolute Neuts (auto) 2.09 Sodium 141 Potassium 3.6 Chloride 108 H Carbon Dioxide 27 Anion Gap 10 BUN 15 Creatinine 1.1 Est GFR ( Amer) > 60 Est GFR (Non-Af Amer) > 60 Random Glucose 95 Calcium 9.5 Phosphorus 3.6 Magnesium 2.0 Iron TIBC % Saturation Total Bilirubin 0.2 AST 23 ALT 9 Alkaline Phosphatase 52 Total Protein 7.5 Albumin 3.9 Globulin 3.6 Albumin/Globulin Ratio 1.1 Triglycerides Cholesterol LDL Cholesterol Direct HDL Cholesterol Vitamin B12 344 Folate > 20.0 05/31/18 05/31/18 06:00 10:50 WBC RBC Hgb Hct MCV MCH MCHC RDW Plt Count MPV Neut % (Auto) Lymph % (Auto) Sterling % (Auto) Eos % (Auto) Baso % (Auto) Lymph # (Auto) Sterling # (Auto) Eos # (Auto) Baso # (Auto) Absolute Neuts (auto) Sodium Potassium Chloride Carbon Dioxide Anion Gap BUN Creatinine Est GFR ( Amer) Est GFR (Non-Af Amer) Random Glucose Calcium Phosphorus Magnesium Iron 37 L TIBC 263 % Saturation 14 L Total Bilirubin AST ALT Alkaline Phosphatase Total Protein Albumin Globulin Albumin/Globulin Ratio Triglycerides 207 H Cholesterol 162 LDL Cholesterol Direct 85 HDL Cholesterol 31 Vitamin B12 Folate Radiology Impressions: Radiology Impressions Head CT 05/30/18 08:00 IMPRESSION: No significant interval change. No acute findings. Redemonstration of known AV malformation in the left thalamus. An MRI of the brain without and with intravenous contrast is recommended for reassessment in the setting of stroke. Critical Care Progress Note - Nutrition Nutrition: Nutrition Category Date Time Status Heart Healthy Diet [DIET] Diets 05/30/18 Breakfast Active Assessment/Plan - Assessment and Plan (Free Text) Plan: Patient seen and examined on rounds with resident, agree with note with following additions/exceptions: Patient is 57yo male with PMHx of CVA, RUE/RLE weakness, two ruptured cerebral aneurysms, SOCIAL WORK MANAGER shunt, HTN, HLD, and an EF of 35% who presented to the ED complaining of dysarthria and also weakness of the RUE and RLE. Symptoms have resolved, patient is currently at baseline strength and speech Labs, imaging, chart reviewed CT Head results on repeat noted TIA Hx CVA Weakness Hx Cerebral Aneurysms CHF, chronic compensated systolic HTN HLD Recommend: - supp o2 as needed, duonebs PRN, IS, OOB to chair - NO ID issues - BP control, resume home meds - Coreg, Norvasc, lipitor - ASA - MRI brain - PT eval - GI ppx - DVT ppx - Stable, transfer to tele
[2018-05-31 10:37] LABS: HDL CHOLESTEROL 31 mg/dL (29-60)
[2018-05-31 10:47] LABS: LDL CHOLESTEROL 85 mg/dL (0-129)
[2018-05-31 11:09] LABS: IRON 37 ug/dL (45-180)
[2018-05-31 11:18] LABS: % IRON SATURATION 14 % (20-55); TOTAL IRON BINDING CAPACITY 263 ug/dL (261-462)
--- NOTE | 2018-05-31 12:41 | PN ---
DATE: 05/30/2018 SUBJECTIVE: The patient is a 57-year-old male. The patient was seen and examined at the bedside on 05/30/2018 in the ICU, sitting, having meal. No fever. No chills. No hematuria. No hematochezia. No headaches. No dizziness. No chest pain or palpitation. Looking like the patient is back to his baseline. PHYSICAL EXAMINATION: VITAL SIGNS: Temperature 98.6, pulse 56, respiratory rate 15, blood pressure 171/92, pulse oximetry 100%. HEENT: Head is normocephalic and atraumatic. Eyes; PERRLA, extraocular muscles intact, conjunctivae clear. Nose patent. Mucous membranes moist. NECK: Supple. No carotid bruits. No thyromegaly. CHEST: Bilaterally symmetrical. HEART: S1 and S2 positive. LUNGS: Clear to auscultation. ABDOMEN: Soft. Bowel sounds present. No organomegaly. EXTREMITIES: No edema. No cyanosis. NEUROLOGIC: The patient is awake and alert. Follows simple commands. MEDICATIONS: Cardene IV premixed, Keppra, and Protonix. LABORATORY DATA: White blood cell 4.1, hemoglobin 11.5, hematocrit 38.2, and platelets 175. Sodium 141, potassium 3.6, BUN 14, creatinine 1.1, and glucose 84. ASSESSMENT AND PLAN: Mr. Arcenio Lara is a 57-year-old male with leukopenia, anemia, came with change in the status. We called neurologist and according to neurosurgeon, the patient has arteriovenous malformation of left deep thalamic area, there is evidence of prior rupture/calcification within it; unclear if there was some embolization procedure done in the past. There is no evidence of the latest studies that there is acute hemorrhage. At this time, there is no acute surgical intervention indicated. Suggested the patient need good neurosurgery followup. As per Dr. Teri Christy, the patient has history of malformation in the left thalamic region, history of hypertension, history of stroke, history of aneurysm repair 20 year ago, upper and lower extremity weakness. The patient has 2 ruptured cerebral aneurysms status post repair at the age of 23 and 34 as per the patient. Severely impaired systolic function and latest ejection fraction is 35%, hypercholesterolemia. The patient is in the unit. History of ventriculoperitoneal shunt. We had to keep the patient on seizure precautions, gastrointestinal and deep vein thrombosis prophylaxis. Repeat labs. We will follow up. Norma Robledo MD JUDITH
[2018-05-31] MEDS ORDERED: Albuterol-Ipratrop 3 mg / 0.5 (3 ml) UD IH PRN (13:31)
--- NOTE | 2018-05-31 15:40 | CON ---
DATE: 05/31/2018 PULMONARY CONSULT NOTE REFERRING PHYSICIAN: Norma Robledo MD REASON FOR CONSULT: Cough, possible DAVID. HISTORY OF PRESENT ILLNESS: This is a 57-year-old male with past medical history significant for hypertension, brain aneurysm, CVA with right sided residual weakness, mild dysarthria. The patient has history of two ruptured cerebral aneurysms status post repair and also has past medical history of hypercholesterolemia, severely impaired systolic function, ejection fraction 35%. The patient presented to the emergency room complaining of increased dysarthria and right-sided weakness, so he presented to the emergency room for evaluation. The patient also reported history of dry cough and generalized weakness. The patient seen today in the ICU, states that increase in dysarthria and right-sided weakness have resolved as if he feels he is currently at his baseline. States that he does not have cough at this time, but he does notice he coughs a lot when he is outside and it is cold, admits to snoring, daytime sleepiness. PAST MEDICAL HISTORY: As per history of present illness. FAMILY HISTORY: No significant cardiopulmonary disease reported. SOCIAL HISTORY: Nonsmoker. No EtOH abuse. No illicit drug use. ALLERGIES: NO KNOWN ALLERGIES. MEDICATIONS: Reviewed. Norvasc 10 mg daily, Lipitor 40 at dinner, Coreg 12.5 mg twice a day, hydralazine 10 mg 4 times a day p.r.n. systolic blood pressure greater than 160, Keppra 500 mg IV piggyback every 12 hours, and Protonix 40 mg a.c. REVIEW OF SYSTEMS: No headache, rhinitis, cough, shortness of breath, chest pain, abdominal pain, nausea, vomiting, diarrhea, leg pain, or leg swelling reported. The patient does report that he does have coughing whenever he goes outside and he is out in the cold. Reports snoring, daytime sleepy, tired. PHYSICAL EXAMINATION GENERAL: No acute distress. VITAL SIGNS: Blood pressure 163/91, pulse 62, oxygen saturation 99% on room air. HEENT: Moist mucous membranes. Mallampati score of 4. Crowded airway. NECK: Supple. No JVD. RESPIRATORY: Fair airflow bilaterally. CARDIOVASCULAR: S1 and S2. ABDOMEN: Soft and nontender. No distension. No organomegaly. EXTREMITIES: No bilateral lower extremity edema, right-sided weakness. NEUROLOGIC: Awake, alert, verbal, following commands. LABORATORY DATA: Reviewed. WBC 3.9, RBC 4.66, hemoglobin 12.3, hematocrit 40.4, and platelets 180. Sodium 141, potassium 3.6, chloride 108, carbon dioxide 27, anion gap 10, BUN 15, creatinine 1.1, GFR greater than 60, random glucose 95, calcium 9.5, phosphorus 3.6, magnesium 2.0, iron 37, TIBC 263, percent saturation 14, total bilirubin 0.2. AST 23, ALT 9, alkaline phosphatase 52, total protein 7.5, albumin 3.9, globulin 3.6, and albumin-globulin ratio 1.1. Triglycerides 207, cholesterol 162, LDL cholesterol 85, HDL cholesterol 31, vitamin B12 of 344, folate greater than 20. Influenza type A and B negative. MRSA negative. EKG shows normal sinus rhythm. Head CT shows no acute intracranial abnormality. Redemonstration of known 3.3 x 3.5 cm left thalamic arteriovenous malformation, good position of right transparietal shunt catheter. Chest x-ray, no active pulmonary disease. Head and neck CTA shows no evidence of endoluminal thrombus occlusion or definite significant stenosis in intracranial arteries, no evidence of hemodynamically significant stenosis in internal carotid arteries, patent bilateral vertebral arteries. Head CT shows no significant interval change, no acute findings. This redemonstration of known AV malformation is in the left thalamus. IMPRESSION AND PLAN: Cerebrovascular accident with residual weakness, history of ruptured cerebral aneurysm ventriculoperitoneal shunt, hypertension, hyperlipidemia. Echocardiogram reviewed from 07/2017 showed ejection fraction 35%, right ventricular systolic pressure 27, impaired systolic function, left thalamic arteriovenous malformation. We suspect sleep apnea in this patient, head of bed elevated 45 degrees. We will start the patient on CPAP 8 cm H2O due to suspected sleep apnea in this patient. It increases the risk of recurrent stroke and the risk of bleeding in this patient, so we will start CPAP tonight. We will order procalcitonin, proBNP levels to be done. SCDs to bilateral lower extremities for deep venous thrombosis prophylaxis due to AV malformation. We will not put this patient on chemical prophylaxis. Continue Neurology followup, Neurosurgical followup. Cardiology consult pending. We will start the patient on p.r.n. inhaled bronchodilators. Neurosurgeon's notes reviewed and it determined that there is no acute surgical intervention indicated at this time. We recommend this patient have full pulmonary function test as outpatient to rule out chronic lung disease and we recommend attended sleep study for this patient for suspected sleep apnea syndrome. Critical care time spent more than 35 minutes. This patient was seen and examined with Dr. Lemons. Discussed assessment and plan as described above. This patient was seen and examined with Dev Aguirre, nurse practitioner. Discussed assessment and plan as described above. Thank you for this consult. We will follow with you. Dev Aguirre APN David Lemons MD MTDDavid
--- NOTE | 2018-05-31 17:10 | CARD ---
APPROVED REPORT Date of service: 05/31/2018 EXAM: Two-dimensional and M-mode echocardiogram with Doppler and color Doppler. INDICATION CMP/ICP 2D DIMENSIONS Left Atrium (2D)4.6 (1.6-4.0cm)IVSd1.2 (0.7-1.1cm) LVDd6.2 (3.9-5.9cm)PWd1.3 (0.7-1.1cm) LVDs5.1 (2.5-4.0cm)FS (%) 17.0 % LVEF (%)34.7 (>50%) M-Mode DIMENSIONS Aortic Root3.50 (2.2-3.7cm)Aortic Cusp Exc.2.20 (1.5-2.0cm) Aortic Valve AoV Peak Onzozahd049.0cm/Arnol Peak GR.5mmHg Mitral Valve MV E Pybjkfbm01.9cm/sMV A Tufqmgmn39.0cm/sE/A ratio0.6 TDI Lateral E' Peak V5.65cm/sMedial E' Peak V4.19cm/sE/Lateral E'8.7 E/Medial E'11.7 Pulmonary Valve PV Peak Ueeecjwb42.8cm/sPV Peak Grad.4mmHg Tricuspid Valve TR Peak Xemuoddx024fj/sRAP [id number] Peak Gr.21mmHg [id number] LEFT VENTRICLE The Left Ventricle is mildly dilated. There is borderline to mild concentric left ventricular hypertrophy. The systolic function is moderately impaired.EF-30-35% There is moderate global hypokinesis of the left ventricle. Transmitral Doppler flow pattern is Grade III-reversible restrictive diastolic dysfunction. No left ventricle thrombus noted on this study. There is no ventricular septal defect visualized. There is no left ventricular aneurysm. There is no mass noted in the left ventricle. RIGHT VENTRICLE The right ventricle is normal size. There is normal right ventricular wall thickness. The right ventricular systolic function is normal. ATRIA The left atrium is mildly dilated. The right atrium is mildly dilated. The interatrial septum is intact with no evidence for an atrial septal defect. AORTIC VALVE The aortic valve is thickened but opens well. No aortic regurgitation is present. There is no aortic valvular stenosis. There is no aortic valvular vegetation. MITRAL VALVE The mitral valve is thickened but opens well. Mitral regurgitation is trace to mild. There is no mitral valve stenosis. There is no evidence of mitral valve prolapse. TRICUSPID VALVE The tricuspid valve leaflets are thickened , but open well. There is trace tricuspid regurgitation.RVSP-31 mmof hg. There is no tricuspid valve stenosis. There is no tricuspid valve prolapse or vegetation. PULMONIC VALVE The pulmonary valve is normal in structure. There is no pulmonic valvular regurgitation. There is no pulmonic valvular stenosis. GREAT VESSELS The aortic root is normal in size. The ascending aorta is normal in size. The pulmonary artery is normal. The IVC is normal in size and collapses >50% with inspiration. PERICARDIAL EFFUSION There is no pleural effusion. There is no pericardial effusion. <Conclusion> The Left Ventricle is mildly dilated. There is borderline to mild concentric left ventricular hypertrophy. The systolic function is moderately impaired.EF-30-35% Mitral regurgitation is trace to mild. There is trace tricuspid regurgitation.RVSP-31 mmof hg. The IVC is normal in size and collapses >50% with inspiration. There is no pericardial effusion.
--- NOTE | 2018-05-31 20:32 | CON ---
DATE: 05/31/2018 CONSULT SERVICE: Cardiology. REASON FOR CONSULTATION: Cardiac evaluation, history of cardiomyopathy, admitted with intracerebellar bleed, history of aneurysm in the past. BRIEF CLINICAL HISTORY: This is 57-year-old male with past medical history significant for hypertension, history of CVA with mild residual dysarthria and mild right-sided facial droop, history of raptured cerebral aneurysm status post repair 22 to 23 years ago, cardiomyopathy ejection fraction 35%, hypertension, hyperlipidemia, came to the emergency room with generalized weakness and progressive worsening slurring of his speech. CAT scan shows intracerebellar bleed. The patient is currently in ICU 128, bed 1. Cardiac consult was called for cardiac evaluation, rule out CHF and cardiomyopathy. The patient denies any chest pain, shortness of breath, or any palpitation. PAST MEDICAL HISTORY: Significant for hypertension, history of right parietal shunt, and history of AV malformation and history of raptured aneurysm in the past and history of hyperlipidemia. SOCIAL HISTORY: Denies smoking. Denies any history of alcohol abuse. CURRENT MEDICATIONS: The patient is taking Keppra 500 mg p.o. two times a day, amlodipine 10 mg daily, Bystolic 20 mg daily, Tricor 145 mg daily, carvedilol 6.25 mg daily, atorvastatin 40 mg daily, and aspirin 81 mg daily. ALLERGIES: NO KNOWN DRUG ALLERGY. PREVIOUS CARDIOLOGY WORKUP: The patient had cardiology with Dr. Walker Ibarra at [facility]. According to the patient, the patient had a stress test 3 to 6 months ago at the most and according to him, the stress test was negative. The patient had a cardiac catheterization done on 11/10/[address] Terry and that was found to be normal coronaries, moderately reduced LV function, normal pulmonary pressure. The patient had both right and left catheterization done. Left heart catheterization revealed mildly dilated size LV with moderately reduced LV contraction, ejection fraction reported 35%, end-diastolic pressure 82 with a range of 10. No gradient across the aortic valve noted. Right heart catheterization at that time revealed RA 2, right ventricular pressure 24/4, pulmonary artery pressure 21/17 and the pulmonary capillary wedge pressure 9. Cardiac output was 6.63 and cardiac index was 2.75. Impression; moderately reduced LV function, normal coronaries, normal right heart pressure. The patient had an echocardiography done on 07/20/2017 that revealed systolic function severally impaired, severe inferolateral hypokinesis, calculated ejection fraction 35%. The patient had a stress test. The patient had a MUGA scan done with ejection fraction 32%. Past history as mentioned significant for multiple brain aneurysm that started at the age of 23 and the patient had the first rupture and then again at the age of 34. Subsequently, the patient underwent embolization and coiling. Hypertension, history of right-sided weakness, history of embolization in the past as mentioned, and history of chronic dysarthria and chronic right facial droop since the rapture of aneurysm the second time. History of admission on 07/21/2017 where the patient presented with acute CVA at that time also. The patient's last stress test on 09/03/2017, that shows abnormal myocardial perfusion with a fixed defect, inferior defect, no ischemia, and decreased LV function, ejection fraction by stress test 36%, dated 09/03/2017. REVIEW OF SYSTEMS: As per HPI. PHYSICAL EXAMINATION GENERAL: Height of the patient 6 feet 6 inches, weight of the patient 240 pounds, and body mass index 27 kg/m2. VITAL SIGNS: Temperature afebrile, heart rate 65, and blood pressure 158/82. HEENT: PERRLA. Extraocular muscles intact. NECK: Supple. No carotid bruits or thyromegaly. CHEST: Clear to auscultation. HEART: S1 and S2 regular. ABDOMEN: Soft. EXTREMITIES: Clubbing and cyanosis, negative. LABORATORY DATA: EKG shows normal sinus, T wave inversion in V4 and V6, LVH, abnormal EKG. When compared with the EKG from 03/25/2018, symmetrical T wave inversion noted in V4, V5, and V6. IMPRESSION: A 57-year-old male admitted after having generalized weakness and speech slurring, found to be intracerebral bleed, history of multiple brain aneurysm that started at the age of 23, the patient had his first rupture and then the patient again had rapture at the age of 34, so clinically the patient underwent coiling embolization, admitted again with intraparenchymal bleed and cerebrovascular accident. The patient had a cardiac catheterization in 2012, essentially normal coronaries, normal right heart pressure, decreased left ventricular function. The patient had subsequently MUGA scan done that showed ejection fraction 34% in the patient in 10/2017. The patient had a cerebral aneurysm and clipped at the age of 23 and at 24 had a rapture at that time. History of cardiomyopathy as mentioned, is status cardiac catheterization in 2019 showed nonobstructive essentially normal coronaries, cardiomyopathy, normal right heart pressure, admitted with intraparenchymal bleed. The patient had a last stress test dated 09/03/2017, no reversible ischemia, fixed defect, ejection fraction 36%. Last MUGA scan 07/21/2017 shows ejection fraction 32%. The last echo done 07/20/2017, moderate left ventricular dysfunction interpreted by Dr. Sheldon and calculated election fraction at around 35%. Admitted with intracerebral bleed, history of parenchymal shunt and coiling of the embolization, history of longstanding history of hypertension, being followed by Dr. Walker Ibarra as well. On anti-seizure medication as his beta junior. RECOMMENDATIONS: Resume back beta junior. Maintain blood pressure closely. Try to avoid raised blood pressure to further extension of the intracerebellar bleed. I will redo the echo to assess LV function, lipid profile, TSH, and hemoglobin A1c. We will follow with you. We will get lipid profile, TSH, and hemoglobin A1c as well. Thank you Dr. Coon for providing us the opportunity in taking care of the patient, Arcenio Lara. David West MD
--- NOTE | 2018-06-01 04:56 | PN ---
DATE: 05/31/2018 SUBJECTIVE: The patient is seen and examined at the bedside on 05/31/2018, looking comfortable. No headache. No rashes. No coughing. No shortness of breath. No hematuria. No hematochezia. No chest pain. No palpitation. No abdominal pain. No nausea, vomiting, or diarrhea. No headache or dizziness. PHYSICAL EXAMINATION: VITAL SIGNS: Blood pressure 150/90, pulse 62, oxygen saturation 99% on room air. HEENT: Head normocephalic, atraumatic. Eyes PERRLA. Extraocular muscles intact. Conjunctivae clear. Nose patent. Mucous membrane moist. NECK: Supple. No carotid bruit. No JVD or thyromegaly. CHEST: Bilaterally symmetrical. HEART: S1 and S2 positive. LUNGS: Clear to auscultation. ABDOMEN: Soft. Bowel sounds present. No organomegaly. EXTREMITIES: No edema. No cyanosis. NEUROLOGICAL: The patient is awake and alert. Follows simple commands. LABORATORY DATA: White blood cells 3.6, hemoglobin 12.3, hematocrit 40.4, platelets 150. Sodium 141, potassium 3.6, BUN 15, creatinine 1.1. AST 23, ALT 9. MEDICATIONS: Norvasc, Lipitor, Coreg, hydralazine, Keppra, Protonix. ASSESSMENT AND PLAN: Mr. Arcenio Lara is a 57-year-old male with multiple medical problems, cerebrovascular accident with residual weakness, history of ruptured cerebral aneurysm, history of ventriculoperitoneal shunt, hypercholesterolemia, hypertension. Echocardiogram done. Sleep apnea syndrome. Rule out seizures. Started the patient on inhaled bronchodilators. Neurosurgeon, neurologist, is on the case. Waiting for physical therapy input. Gastrointestinal and deep venous thrombosis prophylaxis. Seen by Pulmonology, Critical Care, and senior back end java developer. History of multiple AV malformation and surgeries. Cardiology is recommending to resume beta-blockers. Echocardiography suggested by the senior back end java developer. Repeat laboratories. We will follow up. Norma Robledo MD JUDITH
[2018-06-01 06:02] VITALS: O2SAT 99
[2018-06-01 06:45] LABS: BASO # 0.01 K/mm3 (0.0-2.0); BASO % 0.2 % (0.0-3.0); EOS # 0.1 (0.0-0.7); EOS % 3.1 % (1.5-5.0); HEMOGLOBIN 12.7 g/dL (14.0-18.0); LYMPH # 1.7 (1.2-3.4); LYMPH % 41.2 % (22.0-35.0); MEAN CELL VOLUME 84.9 fl (80.0-105.0); MEAN CORPUSCULAR HEMOGLOBIN 26.3 pg (25.0-35.0); MEAN CORPUSCULAR HGB CONC 31.1 g/dl (31.0-37.0); MONO # 0.4 (0.1-0.6); MONO % 9.9 % (1.0-6.0); RBC 4.82 10^6/uL (3.5-6.1); RED CELL DISTRIBUTION WIDTH 14.7 % (11.5-14.5); WHITE BLOOD COUNT 4.1 10^3/uL (4.5-11.0)
[2018-06-01 07:08] LABS: ALBUMIN 3.7 g/dL (3.0-4.8); ALT/SGPT 10 U/L (7-56); AST/SGOT 27 U/L (17-59); BLOOD UREA NITROGEN 18 mg/dL (7-21); CALCIUM 9.4 mg/dL (8.4-10.5); GFR NON-AFRICAN AMERICAN > 60
[2018-06-01 07:10] LABS: B-TYPE NATRIURETIC PEPTIDE 277 pg/mL (0-450)
[2018-06-01] MEDS ORDERED: Pantoprazole 40 mg EC Tab PO SCH (07:30)
[2018-06-01] MEDS: levETIRAcetam 500mg IVPB 500 MG/100 ML BAG IVPB SCH (10:15)
--- NOTE | 2018-06-01 11:30 | PN ---
DATE: 06/01/2018 REASON FOR CONSULTATION: Cardiac evaluation, history of cardiomyopathy, admitted with intracerebral bleed, history of aneurysm in the past. SUBJECTIVE: The patient denies any chest pain, shortness of breath, or any palpitation. OBJECTIVE: GENERAL: Not in apparent distress. He wants to go home. VITAL SIGNS: Temperature afebrile, heart rate 55, blood pressure 145/75. HEENT: PERRLA. Extraocular muscles are intact. NECK: Supple. No carotid bruits or thyromegaly. CHEST: Clear to auscultation. HEART: S1 and S2 regular. ABDOMEN: Soft. EXTREMITIES: Clubbing and cyanosis, negative. LABORATORY DATA: Blood workup; WBC 4.8, hemoglobin 12.6, hematocrit 40.9, platelet count 201. Chemistry shows sodium 140, potassium 3.8, chloride 106, carbon dioxide 28, anion gap of 10, BUN 18, creatinine 1.1. Triglycerides 207, cholesterol 162, LDL 85, HDL 31. TSH 3.56. DIAGNOSTIC DATA: Echocardiography done yesterday revealed ejection fraction of 30-35%, trace to mild mitral regurgitation, trace tricuspid regurgitation, right ventricular systolic pressure of 31. IMPRESSION AND RECOMMENDATION: This is a 57-year-old male with longstanding history of hypertension, being followed by Dr. Walker Ibarra at [facility]. He had a stress test three to six months ago, according to him was told negative; history of cardiac catheterization On 11/10/[address] Terry, found to be normal coronary,moderately reduced LV function, normal right heart pressure. Admitted with intracerebral bleed and brain aneurysm, history of arteriovenous malformation and brain aneurysm and history of rupture at the age of 23 and age of 34 status post coiling by history. Seen by neurosurgeon and cleared. No further intervention is planned at this time. Previous MUGA scan shows ejection fraction of 35%. Yesterday repeat echo shows ejection fraction of around 35%. Discussed with Neurology, Dr. Estrada yesterday. Medical management was recommended from neurosurgical point of view. From Cardiology point of view, the patient has nonischemic cardiomyopathy, normal right heart pressure and normal coronaries. Suggest Coreg 12.5 mg orally twice a day, add low dose of angiotensin converting enzyme inhibitors and continue atorvastatin and not a candidate for aspirin because of recent increased intracranial pressure bleed. Reassess LV function in three to six months and if remains below, we can consider automatic implantable cardioverter-defibrillator. For now, medical treatment. Okay to discharge from telemetry and once the patient is cleared from Neurology point of view, okay to discharge home. We will put low dose of lisinopril for remodelling of the ventricle because of nonischemic cardiomyopathy. Continue Coreg. Thank you Dr. Robledo for providing us the opportunity in taking care of the patient, Arcenio Lara. David West MD
--- NOTE | 2018-06-01 13:01 | PN ---
DATE: 06/01/2018 PULMONARY PROGRESS NOTE REFERRING PHYSICIAN: Norma Robledo MD SUBJECTIVE: The patient is seen sitting in armchair, just finished walking with physical therapy. Oxygen saturation checked on room air 98%. The patient reports feeling well this morning, did not use CPAP machine, states he does not want to use CPAP machine while hospitalized. No headache, rhinitis, cough, shortness of breath, chest pain, abdominal pain, nausea, vomiting, diarrhea, leg pain, leg swelling reported. OBJECTIVE: VITAL SIGNS: Blood pressure 106/70, pulse 70, temperature 97.6, oxygen saturation 99% on room air. GENERAL: No acute distress. HEENT: Moist mucous membranes. Mallampati score 4. Crowded airway. NECK: Supple. No JVD. RESPIRATORY: Fair airflow bilaterally. CARDIOVASCULAR: S1 and S2. ABDOMEN: Soft and nontender. No distention. No organomegaly. EXTREMITIES: No bilateral lower extremity edema, right-sided weakness. NEUROLOGIC: Awake, alert, verbal, following commands. MEDICATIONS: Reviewed. DuoNeb 3 mL inhalation every 4 hours p.r.n., Norvasc 10 mg daily, Lipitor 40 mg at dinner, Coreg 12.5 mg twice a day, hydralazine 10 mg four times a day p.r.n. for systolic blood pressure greater than 160, Keppra 500 mg every 12 hours, lisinopril 2.5 mg daily, Protonix 40 mg in the morning. LABORATORY DATA: Reviewed. WBC 4.1, RBC 4.82, hemoglobin 12.7, hematocrit 40.9, platelets 201. Sodium 140, potassium 3.8, chloride 106, carbon dioxide 28, anion gap 10, BUN 18, creatinine 1.1, GFR greater than 60, random glucose 92, calcium 9.4, iron 37, percent saturation 263, total bilirubin 14, bilirubin 0.5, ALT 27, AST 10, alkaline phosphatase 51, proBNP 277, total protein 7.6, albumin 3.7, globulin 3.9, albumin-globin ratio 1, TSH 3.56. DIAGNOSTIC DATA: Echocardiogram shows ejection fraction 30% to 35%, RVSP 31%, trace tricuspid regurgitation, [id number] mitral regurgitation. IMPRESSION AND PLAN: Cerebrovascular accident with residual weakness, history of ruptured cerebral aneurysm, ventriculoperitoneal shunt, hypertension, hyperlipidemia, impaired systolic function, left thalamic arteriovenous malformation. We suspect sleep apnea in this patient. The patient is refusing to use continuous positive airway pressure, educated with recording sleep apnea and increased risk of stroke and risk for bleeding with not using continuous positive airway pressure machine. The patient verbalizes understanding. Still states that he does not want to use continuous positive airway pressure machine at this time. We will continue to encourage continuous positive airway pressure use, sleep apnea precaution, head of bed elevated to 45 degrees, procalcitonin drawn and awaiting results. SCDs to bilateral lower extremities for deep venous thrombosis prophylaxis due to arteriovenous malformation. We will not place patient on chemical prophylaxis or deep venous thrombosis prophylaxis, continue Cardiology followup, Neurology followup, physical therapy, continue inhaled bronchodilators. We recommend patient have full pulmonary function test as outpatient to rule out chronic lung disease and recommend attempt at sleep study for suspected sleep apnea syndrome. This patient was seen and examined with Dr. Lemons. Discussed assessment and plan as described above. This patient was seen and examined with Dev Aguirre, nurse practitioner. Discussed assessment and plan as described above. Thank you for this consult. We will follow with you. Dev Aguirre APN David Lemons MD JUDITH
--- NOTE | 2018-06-01 17:57 | PN ---
DATE: 06/01/2018 NEUROLOGY FOLLOWUP CHIEF COMPLAINT: Worsening right-sided weakness and slurred speech. 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 His CT angio of the head showed no evidence of any new aneurysms. The CAT scan of the head showed residual left thalamic AVM with no other acute intracranial abnormality and stable MEASUREMENT ADVISOR shunt. He is doing much better. He is on Keppra for seizure prophylaxis 500 every 12 which he takes as an outpatient and sees me in the office. He is clinically at his baseline according to my evaluation. PAST MEDICAL HISTORY: As above. SOCIAL HISTORY: No illicit drug use, smoking, or EtOH abuse. REVIEW OF SYSTEMS: A 14-point review of systems is negative except in the HPI. FAMILY HISTORY: Noncontributory. MEDICATIONS: Reviewed by nurse per reconciliation sheet. ALLERGIES: NO KNOWN DRUG ALLERGIES. LABORATORY DATA: Sodium is 140, potassium 3.8, chloride 106, carbon dioxide 28, BUN of 18, creatinine 1.1, random glucose 92. PHYSICAL EXAMINATION: VITAL SIGNS: Temperature 97.8, pulse rate of 71, blood pressure 153/80. GENERAL: The patient is sitting up in bed, in no acute distress. HEENT: Atraumatic and normocephalic. NECK: Supple. No JVD. No adenopathy noted. LUNGS: Clear to auscultation. No adventitious sounds. HEART: S1, S2, normal rate and rhythm. No murmurs, rubs or gallops. ABDOMEN: Soft, nontender, and nondistended. Bowel sounds present. EXTREMITIES: No clubbing. No cyanosis. Peripheral pulses 2+ bilaterally. NEUROLOGIC: The patient is alert and oriented to person, place, and year. Speech is fluent without any errors except for some mild dysarthria which is from prior left thalamic AVM. Cranial nerves II through XII intact. 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 Sensory exam: Light touch pinprick, proprioception, and vibration are intact. DTRs are 2+ throughout. Coordination: Uctred-kt-lpye intact. No dysmetria noted.. Gait is deferred for now. IMPRESSION: Symptoms of transient slurred speech and worsening right-sided weakness. This could be secondary to underlying possible transient ischemic attack with underlying sleep apnea syndrome, superimposed underlying left thalamic arteriovenous malformation with residual right-sided weakness. He is clinically stable from my standpoint. Continue with Keppra 500 mg p.o. b.i.d. for seizure prophylaxis. Maintain his MAP above 65 and continue with Lipitor for dyslipidemia and he will follow up with me as an outpatient. Thank you for this followup. Dax Estrada MD
[2018-06-01 18:06] VITALS: BP 151/90; PULSE 61; RESP 18; TEMP 97.6
--- NOTE | 2018-06-01 20:25 | CP.PCM.PCO ---
Physician Communication Note - Physician Communication Note Physician Communication Note: AMA Addendum Addendum: 06/01/18 20:20 Nursing called stating patient wanted to AMA Risks of leaving ama vs benefits of continued hospitalization were discussed w/ patient and his who was at bedside. Patient verbalized understanding risks of leaving AMA vs Benefits of continued hospitalization Patient has been AMA'd ; Dr. Robledo service notified
== END 2018-06-01 20:53 | disposition left against medical advice (07) | DRG 69 ==
LOC: ED 17:31 → ERH 20:16 → ICU 21:48 → 2RSO 05-31 16:25
PROVIDERS: ADMIT Internal Medicine; ATTEND Internal Medicine
DX: G45.9 Transient cerebral ischemic attack, unspecified (principal); G93.6 Cerebral edema; Q28.2 Arteriovenous malformation of cerebral vessels; I62.02 Nontraumatic subacute subdural hemorrhage; I69.351 Hemiplegia and hemiparesis following cerebral infarction affecting right dominant side; R47.01 Aphasia; I50.22 Chronic systolic (congestive) heart failure; I42.9 Cardiomyopathy, unspecified; I11.0 Hypertensive heart disease with heart failure; I69.322 Dysarthria following cerebral infarction; R29.810 Facial weakness; Z98.2 Presence of cerebrospinal fluid drainage device; Z86.79 Personal history of other diseases of the circulatory system; D64.9 Anemia, unspecified; E87.8 Other disorders of electrolyte and fluid balance, not elsewhere classified; D72.819 Decreased white blood cell count, unspecified; E78.00 Pure hypercholesterolemia, unspecified; E78.5 Hyperlipidemia, unspecified; G47.30 Sleep apnea, unspecified; I08.1 Rheumatic disorders of both mitral and tricuspid valves